=== PATIENT | female | born 1935 | race Caucasian/White ===

== ENCOUNTER → 2019-03-15 13:26 | Outpatient (CLI) | payer MEDICARE, SELFPAY ==
--- NOTE | 2019-03-15 13:31 | ECHOD_ITS ---
Reason For Study: MURMUR Procedure This was a 2D Doppler, Color Flow transthoracic echocardiogram. The study was technically difficult. Exam performed in department. Left Ventricle Normal LV size. Left ventricular systolic function is normal. The estimated ejection fraction is 65 %. Diastolic function is indeterminate. No regional wall motion abnormalities noted. Right Ventricle Normal RV size. Normal systolic function. Atria The left atrium is mildly enlarged. Normal right atrium. No doppler evidence for ASD. Mitral Valve There is mild mitral annular calcification. Extension of the mitral annular calcification onto the posterior mitral valve leaflet. Trivial mitral valve insufficiency. Tricuspid Valve Normal tricuspid valve. Mild tricuspid valve insufficiency. Right ventricular systolic pressure estimated to be 35 mmHg. Aortic Valve Trisinus/trileaflet aortic valve. Mild focal aortic valve calcification. Trivial aortic valve insufficiency. Pulmonic Valve The pulmonic valve is not well visualized. Great Vessels Normal sized aortic root. Calcified aortic root. Pericardium/Pleural No pericardial effusion. MMode/2D Measurements & Calculations LVIDd: 4.3 cm IVSd: 0.93 cm Ao root diam: 3.0 cm LVIDs: 3.0 cm LVPWd: 1.1 cm RVDd: 3.5 cm FS: 31.6 % LAV(MOD-bp): 69.1 ml LA A4 area: 19.6 cm2 LA dimension(2D): 3.3 cm LAV(MOD-bp) Indexed: 39.3 ml/m2 LAV(MOD-sp2): 62.6 ml LAV(MOD-sp4): 62.0 ml RA A4 area: 19.3 cm2 Time Measurements MV dec time: 0.19 sec Doppler Measurements & Calculations MV E max rafael: 76.0 cm/sec Lat Peak E' Rafael: 11.2 cm/sec Med Peak E' Rafael: 7.2 cm/sec MV A max rafael: 88.1 cm/sec E/E' lat: 6.8 E/E' med: 10.5 MV E/A: 0.86 Ao V2 max: 156.0 cm/sec AI max rafael: 398.9 cm/sec LV V1 max: 103.5 cm/sec Ao max P.7 mmHg AI max P.7 mmHg LV V1 max P.3 mmHg AI dec slope: 298.0 cm/sec2 AI P1/2t: 392.2 msec PA V2 max: 141.3 cm/sec TR max rafael: 280.7 cm/sec TR max P.5 mmHg Interpretation Summary The study was technically difficult. Left ventricular systolic function is normal. The estimated ejection fraction is 65 %. The left atrium is mildly enlarged. There is mild mitral annular calcification. Extension of the mitral annular calcification onto the posterior mitral valve leaflet. Trivial mitral valve insufficiency. Mild tricuspid valve insufficiency. Mild focal aortic valve calcification. Trivial aortic valve insufficiency. Calcified aortic root. Right ventricular systolic pressure estimated to be 35 mmHg. Diastolic function is indeterminate. Ordering Physician: Uriel Esquivel Referring Physician: Uriel Esquivel Performed By: Nesha Arnett RDCS, RVT
== END ==
PROVIDERS: Referring Provider Family Medicine; Visit Provider Family Medicine
DX: R01.1 Cardiac murmur, unspecified (principal)
CPT/HCPCS: 93306

== ENCOUNTER → 2023-09-25 | Outpatient (CLI) | payer MEDICARE, SELFPAY ==
[2023-09-25 15:51] LABS: Absolute Lymphocyte Count 1.55 X10^3/uL (0.83-4.51); Absolute Neutrophil Count 5.7 X10^3/uL (2.0-7.7); Basophil# 0.07 X10^3/uL; Basophil% 0.9 % (0-1); Eosinophil# 0.08 X10^3/uL; Hematocrit 43.5 % (37-47); Hemoglobin 13.7 g/dL (12.0-15.0); Lymphocyte # 1.55 X10^3/ul (0.83-4.51); Lymphocyte % 19.4 % (19-41); Mean Corp Hgb Conc 31.5 g/dL (32-36); Mean Corpuscular Hgb 29.8 pg (27.0-32.0); Mean Corpuscular Volume 94.6 fL (81-99); Mean Platelet Vol. 11.6 fl (6.2-12.0); Monocyte# 0.57 X10^3/uL; Monocyte% 7.1 % (0-10); NRBC Flagged by Analyzer 0 % (0-5); Neutrophil # 5.69 X10^3/uL (2.7-7.7); Neutrophil % 71.2 % (47-70); Platelet Count 165 K/mm3 (150-450); RBC Distribution Width CV 13.9 % (11.6-14.6); RBC Distribution Width SD 48.6 fl (35.1-43.9)
[2023-09-25 16:38] LABS: Vitamin D,25 Hydroxy 31.5 ng/mL
[2023-09-25 16:54] LABS: ALB/GLOB Ratio 1.1 RATIO (0.9-2.4); AST(SGOT) 27 U/L (15-37); Alanine Aminotransfer ALT/SGPT 20 U/L (13-56); Albumin, Serum 3.6 g/dL (3.2-5.0); Alkaline Phosphatase 75 U/L (45-117); Anion Gap 7 (5-15); BUN 24 mg/dL (7-18); BUN/Creat Ratio 19.8 RATIO (10-20); Calcium,Total 9.2 mg/dL (8.5-10.1); Chloride 106 mmol/L (98-107); Cholesterol 182 mg/dL (200); Creatinine, Serum 1.21 mg/dL (0.55-1.02); EST Glomerular Filtration Rate 45 mL/min (>60); Est Glom Filt Rate - Afr Amer 54 mL/min (>60); Globulin 3.4 g/dL (2.2-4.2); Glucose 98 mg/dL (74-106); High Density Lipoprotein 64 mg/dL; Potassium 3.6 mmol/L (3.5-5.1); Sodium Level 140 mmol/L (136-145); Triglycerides 152 mg/dL; Very Low Density Lipoprotein 30 mg/dL (5-40)
== END | disposition home or self-care (01) ==
PROVIDERS: PCP Nurse Practitioner Family; Visit Provider Nurse Practitioner Family
DX: I10 Essential (primary) hypertension (principal); E78.5 Hyperlipidemia, unspecified; E55.9 Vitamin D deficiency, unspecified
CPT/HCPCS: 36415; 80053; 80061; 82306; 85025

== ENCOUNTER 2024-02-01 15:03 | Emergency (ER) | payer MEDICARE, SELFPAY ==
[2024-02-01] VITALS (8 sets, daily range): BP systolic 131–151; BP diastolic 76–83; PULSE 79–98; RESP 16–21; TEMP 36.2–36.6; O2SAT 93–98; BMI 26.6
--- NOTE | 2024-02-01 15:18 | EKG12_ITS ---
Test Reason : CHEST PAIN Blood Pressure : / mmHG Vent. Rate : 088 BPM Atrial Rate : 088 BPM P-R Int : 210 ms QRS Dur : 086 ms QT Int : 356 ms P-R-T Axes : 029 -16 043 degrees QTc Int : 430 ms Sinus rhythm with 1st degree A-V block Otherwise normal ECG Confirmed by ABHI SHETH, EMIR ([id number]), society editor NIKKIE BAUGH ([id number]) on 02/02/2024 8:28:05 AM Referred By: Confirmed By:EMIR MOE MD
--- NOTE | 2024-02-01 15:31 | EDS_ITS ---
HPI <LAVONNE Chan - Last Filed: 02/01/24 21:31> History of Present Illness Chief Complaint: Chest Pain Narrative Narrative: Patient presenting today due to substernal dull aching chest pain that radiates to the left side of her chest and back that started around 8:30 AM this morning. She reports that the pain is constant. She reports that the pain in her chest has subsided, she still has a slight pain in her mid back. Pain does not worsen with exertion. She denies feeling short of breath, any fevers, chills, recent illness, or cough. She denies any cardiac history. She reports a PMH of hypertension and COPD. PE Risk Factors: Negative for Recent Travel/Surgery, Recent Immobilization or Prior DVT or PE PFSH <LAVONNE Chan - Last Filed: 02/01/24 21:31> PFSH Medical History Anxiety and depression Chronic pain COPD (chronic obstructive pulmonary disease) GERD (gastroesophageal reflux disease) High cholesterol HTN (hypertension) Osteoporosis Home Medications albuterol sulfate 90 mcg/actuation aerosol inhaler 2 puff inhalation Q8H PRN shortness of breath or wheezing 02/01/24 [History Last Taken Unknown] amlodipine 5 mg tablet 5 mg PO DAILY 02/01/24 [History Last Taken 02/01/24] atenolol 25 mg tablet 25 mg PO DAILY 02/01/24 [History Last Taken 02/01/24] celecoxib 200 mg capsule 200 mg PO DAILY 02/01/24 [History Last Taken 02/01/24] morphine 10 mg capsule,extended release pellets 20 mg PO DAILY 02/01/24 [History Last Taken 02/01/24] omeprazole 40 mg capsule,delayed release 40 mg PO DAILY 02/01/24 [History Last Taken 02/01/24] raloxifene 60 mg tablet 60 mg PO DAILY 02/01/24 [History Last Taken 02/01/24] sertraline 100 mg tablet 150 mg PO DAILY 02/01/24 [History Last Taken Unknown] simvastatin 20 mg tablet 20 mg PO QHS 02/01/24 [History Last Taken 01/31/24] tiotropium bromide 2.5 mcg/actuation mist for inhalation (Spiriva Respimat) 2 puff inhalation DAILY 02/01/24 [History Last Taken 02/01/24] triamterene 37.5 mg-hydrochlorothiazide 25 mg tablet 1 tab PO DAILY 02/01/24 [History Last Taken 02/01/24] Allergy/AdvReac Type Severity Reaction Status Date / Time No Known Allergies Allergy Verified 02/01/24 15:19 Surgical History H/O knee surgery H/O: hysterectomy Social History Smoking Status: Former smoker ROS <LAVONNE Chan - Last Filed: 02/01/24 21:31> ROS ED Constitutional Constitutional ED: Denies chills or fever(s) Cardiovascular Cardiovascular: Reports chest pain; Denies palpitations Respiratory/Chest Respiratory/Chest: Denies cough or dyspnea Gastrointestinal Gastrointestinal: Denies abdominal pain, nausea or vomiting Musculoskeletal Musculoskeletal: Reports back pain Integumentary Denies rash Neurologic Neurologic: Denies paresthesias or weakness EXAM <LAVONNE Chan - Last Filed: 02/01/24 21:31> Physical Exam Const Vital Signs: 02/01/24 15:04 02/01/24 15:04 02/01/24 16:04 Temperature 97.2 F L 97.2 F L Temperature Source Temporal Temporal Pulse Rate 82 92 Respiratory Rate 16 18 Respiratory Effort Normal Non-Labored Respiratory Pattern Normal Blood Pressure 148/82 H 150/81 H Blood Pressure Mean 104 104 Pulse Ox 95 93 Oxygen Delivery Method Room Air Room Air 02/01/24 17:00 02/01/24 18:00 02/01/24 19:00 Temperature 97.4 F L 97.2 F L Temperature Source Temporal Temporal Pulse Rate 89 85 88 Respiratory Rate 16 18 21 H Respiratory Effort Respiratory Pattern Blood Pressure 139/76 H 131/77 H 136/81 H Blood Pressure Mean 97 95 99 Pulse Ox 95 96 98 Oxygen Delivery Method Room Air Room Air Room Air 02/01/24 20:00 02/01/24 21:19 02/01/24 21:00 Temperature 98 F Temperature Source Pulse Rate 79 80 98 Respiratory Rate 16 16 19 H Respiratory Effort Respiratory Pattern Blood Pressure 151/78 H 147/83 H 135/82 H Blood Pressure Mean 102 104 99 Pulse Ox 94 98 93 Oxygen Delivery Method Room Air Positive well nourished, well developed and no apparent distress General Appearance ED: well developed HEENT Reports normocephalic and head/scalp atraumatic Mouth ED: Yes moist mucous membranes normal Eyes PERRL and EOMs intact bilaterally Neck full ROM and supple Chest Wall inspection of chest normal Resp normal respiratory effort and clear to auscultation bilaterally Cardio regular rate and regular rhythm GI soft to palpation, non-tender, non-distended and no masses Back/Spine normal ROM and normal to inspection Extremity normal to inspection and full ROM Neuro oriented x3, CN's II-XII intact bilaterally, moves all extremities, no focal motor deficits and no sensory deficits noted Sensorium / Orientation: awake and alert Psych mental status grossly normal and thought process normal Skin no rashes or lesions noted and no wounds <Dr. Sivakumar Neal DO - Last Filed: 02/01/24 23:00> Physical Exam Const Vital Signs: 02/01/24 15:04 02/01/24 15:04 02/01/24 16:04 Temperature 97.2 F L 97.2 F L Temperature Source Temporal Temporal Pulse Rate 82 92 Respiratory Rate 16 18 Respiratory Effort Normal Non-Labored Respiratory Pattern Normal Blood Pressure 148/82 H 150/81 H Blood Pressure Mean 104 104 Pulse Ox 95 93 Oxygen Delivery Method Room Air Room Air 02/01/24 17:00 02/01/24 18:00 02/01/24 19:00 Temperature 97.4 F L 97.2 F L Temperature Source Temporal Temporal Pulse Rate 89 85 88 Respiratory Rate 16 18 21 H Respiratory Effort Respiratory Pattern Blood Pressure 139/76 H 131/77 H 136/81 H Blood Pressure Mean 97 95 99 Pulse Ox 95 96 98 Oxygen Delivery Method Room Air Room Air Room Air 02/01/24 20:00 02/01/24 21:19 02/01/24 21:00 Temperature 98 F Temperature Source Pulse Rate 79 80 98 Respiratory Rate 16 16 19 H Respiratory Effort Respiratory Pattern Blood Pressure 151/78 H 147/83 H 135/82 H Blood Pressure Mean 102 104 99 Pulse Ox 94 98 93 Oxygen Delivery Method Room Air MDM <LAVONNE Chan - Last Filed: 02/01/24 21:31> [facility] MDM Narrative Medical decision making narrative: Patient presenting today due to substernal chest pain that radiates to her back and left side of her chest started this morning around 8:30 AM. She is well- appearing and in no acute distress. She reports that her chest pain has subsided but she does still feel a slight pain in her back. No history of CAD. Cardiac labs will be obtained as well as a chest x-ray to rule out cardiopulmonary abnormality. Chest x-ray is negative for any acute findings, nonsignificant delta troponin. Labs overall are unremarkable. She was given a GI cocktail and reports improvement of her symptoms. She is requesting to go home. I did recommend that she follow-up with her PCP this week and schedule cardiac testing such as a stress test and echocardiogram given it has been a while since she has had these done. Return instructions were given, she was discharged home in stable condition and is comfortable with plan. Lab Data Attestation: I reviewed the patient's lab results. Labs: Laboratory Results - last 24 hr 02/01/24 02/01/24 17:56 20:01 WBC 10.6 RBC 4.50 Hgb 13.4 Hct 42.5 MCV 94.4 MCH 29.8 MCHC 31.5 L RDW Std Deviation 48.5 H RDW Coeff of Lucio 14.0 Plt Count 143 L MPV 11.1 Immature Gran % (Auto) 0.300 Neut % (Auto) 79.0 H Lymph % (Auto) 12.8 L [place] % (Auto) 7.1 Eos % (Auto) 0.4 Baso % (Auto) 0.4 Absolute Neuts (auto) 8.3 H Absolute Lymphs (auto) 1.35 Nucleated RBC % 0 Sodium 141 Potassium 3.8 Chloride 109 H Carbon Dioxide 28.0 Anion Gap 4 L BUN 24 H Creatinine 0.96 Estim Creat Clear Calc 39.72 Est GFR (MDRD) Af Amer 71 Est GFR (MDRD) Non-Af 59 L BUN/Creatinine Ratio 25.1 H Glucose 103 Calcium 9.1 Troponin I High Sens 9 7 Radiography X-Ray: Read by ED Physician and Read by Radiologist Diagnostic Testing: Clinical Impression(s) from Imaging Studies Chest X-Ray 02/01/24 18:22 IMPRESSION: No active disease. Electronically Signed: Oz Olivo MD at 19:46 EDT , EKG Initial EKG: Comments: 88 bpm, sinus rhythm with first-degree AV block, no ST elevation, reviewed and interpreted by attending ED physician <Dr. Sivakumar Neal, DO - Last Filed: 02/01/24 23:00> [facility] Narrative Medical decision making narrative: Patient presenting today due to substernal chest pain that radiates to her back and left side of her chest started this morning around 8:30 AM. She is well- appearing and in no acute distress. She reports that her chest pain has subsided but she does still feel a slight pain in her back. No history of CAD. Cardiac labs will be obtained as well as a chest x-ray to rule out cardiopulmonary abnormality. Chest x-ray is negative for any acute findings, nonsignificant delta troponin. Labs overall are unremarkable. She was given a GI cocktail and reports improvement of her symptoms. She is requesting to go home. I did recommend that she follow-up with her PCP this week and schedule cardiac testing such as a stress test and echocardiogram given it has been a while since she has had these done. Return instructions were given, she was discharged home in stable condition and is comfortable with plan. This patient was seen with a PA/ENVIRONMENTAL STUDIES PROFESSOR Individually assessed they patient including history and physical. I have reviewed everything on the chart that is available and agree with the documentation provided by the PA/ENVIRONMENTAL STUDIES PROFESSOR including discussion abo ut the assessment, treatment plan, discussion, and return precautions. Patient presenting with chest pain that radiates to the back that has been present since about 830. No other symptoms although she does have a history of GERD in the past. Cardiac workup was ultimately negative. Offered the patient a GI cocktail which she states it had improved her symptoms. At this point since she has had pain all day I do not believe she needs a delta troponin but we did obtain 1 and it was normal at 7 and her initial troponin was 9. Chest x-ray my interpretation is no acute process. Radiologist interprets and agrees. EKG on my interpretation shows a sinus rhythm at 88 bpm without sign ischemic change or ectopy. At this point the patient will be discharged home and return precautions were discussed Lab Data Labs: Laboratory Results - last 24 hr 02/01/24 02/01/24 17:56 20:01 WBC 10.6 RBC 4.50 Hgb 13.4 Hct 42.5 MCV 94.4 MCH 29.8 MCHC 31.5 L RDW Std Deviation 48.5 H RDW Coeff of Lucio 14.0 Plt Count 143 L MPV 11.1 Immature Gran % (Auto) 0.300 Neut % (Auto) 79.0 H Lymph % (Auto) 12.8 L [place] % (Auto) 7.1 Eos % (Auto) 0.4 Baso % (Auto) 0.4 Absolute Neuts (auto) 8.3 H Absolute Lymphs (auto) 1.35 Nucleated RBC % 0 Sodium 141 Potassium 3.8 Chloride 109 H Carbon Dioxide 28.0 Anion Gap 4 L BUN 24 H Creatinine 0.96 Estim Creat Clear Calc 39.72 Est GFR (MDRD) Af Amer 71 Est GFR (MDRD) Non-Af 59 L BUN/Creatinine Ratio 25.1 H Glucose 103 Calcium 9.1 Troponin I High Sens 9 7 Radiography Diagnostic Testing: Clinical Impression(s) from Imaging Studies Chest X-Ray 02/01/24 18:22 IMPRESSION: No active disease. Electronically Signed: Oz Olivo MD at 19:46 EDT , Discharge Plan Triage Chief Complaint: Chest Pain ED Midlevel Provider: Ingris Vela ED Provider: Sivakumar Neal Dx/Rx/DC Orders Clinical Impression: Chest pain Instructions: ED Chest Pain, Uncertain Cause Prescriptions: No Action celecoxib 200 mg capsule 200 mg PO DAILY sertraline 100 mg tablet 150 mg PO DAILY atenolol 25 mg tablet 25 mg PO DAILY amlodipine 5 mg tablet 5 mg PO DAILY omeprazole 40 mg capsule,delayed release(DR/EC) 40 mg PO DAILY triamterene-hydrochlorothiazid 37.5-25 mg tablet 1 tab PO DAILY raloxifene 60 mg tablet 60 mg PO DAILY morphine 10 mg capsule,extend.release pellets 20 mg PO DAILY albuterol sulfate 90 mcg/actuation HFA aerosol inhaler 2 puff inhalation Q8H PRN (Reason: shortness of breath or wheezing) simvastatin 20 mg tablet 20 mg PO QHS Spiriva Respimat 2.5 mcg/actuation mist 2 puff inhalation DAILY Primary Care Provider: Sindhu Haney Referrals: Sindhu Haney, ENVIRONMENTAL STUDIES PROFESSOR-C [Primary Care Provider] - 3-5 Days Activity Restrictions/Additional Instructions: Please follow-up with your PCP and return for any worsening of your symptoms. Disposition Disposition: Home, Self Care Discharge Date/Time: 02/01/24 21:20
[2024-02-01 18:07] LABS: Absolute Lymphocyte Count 1.35 X10^3/uL (0.83-4.51); Absolute Neutrophil Count 8.3 X10^3/uL (2.0-7.7); Basophil# 0.04 X10^3/uL; Basophil% 0.4 % (0-1); Eosinophil# 0.04 X10^3/uL; Eosinophils% 0.4 % (0-5); Hematocrit 42.5 % (37-47); Hemoglobin 13.4 g/dL (12.0-15.0); Lymphocyte # 1.35 X10^3/ul (0.83-4.51); Lymphocyte % 12.8 % (19-41); Mean Corp Hgb Conc 31.5 g/dL (32-36); Mean Corpuscular Hgb 29.8 pg (27.0-32.0); Mean Corpuscular Volume 94.4 fL (81-99); Mean Platelet Vol. 11.1 fl (6.2-12.0); Monocyte# 0.75 X10^3/uL; Monocyte% 7.1 % (0-10); NRBC Flagged by Analyzer 0 % (0-5); Neutrophil # 8.34 X10^3/uL (2.7-7.7); Platelet Count 143 K/mm3 (150-450); RBC Distribution Width SD 48.5 fl (35.1-43.9); White Blood Count 10.6 K/mm3 (4.4-11.0)
--- NOTE | 2024-02-01 18:22 | RAD_ITS ---
STUDY: X-RAY CHEST REASON FOR EXAM: Female, 88 years old. chest pain TECHNIQUE: PA and lateral views of the chest. COMPARISON: None. FINDINGS: The lungs are clear and expanded. There is no demonstrated pleural abnormality. Normal size heart. Normal mediastinum and lay. Normal visualized pulmonary arteries. There is atherosclerotic calcification of the aortic arch with tortuosity. Normal visualized thoracic spine. Normal visualized ribs, clavicles, and shoulders. There is no demonstrated abnormality of the visualized soft tissue structures of the upper abdomen. RAD/Chest PA and Lateral IMPRESSION: No active disease. Electronically Signed: Oz Olivo MD at 19:46 EDT ,
[2024-02-01 18:24] LABS: Anion Gap 4 (5-15); BUN 24 mg/dL (7-18); BUN/Creat Ratio 25.1 RATIO (10-20); Calcium,Total 9.1 mg/dL (8.5-10.1); Chloride 109 mmol/L (98-107); Creatinine, Serum 0.96 mg/dL (0.55-1.02); EST Glomerular Filtration Rate 59 mL/min (>60); Est Glom Filt Rate - Afr Amer 71 mL/min (>60); Estimated Creatinine Clearance 39.72 ml/min; Glucose 103 mg/dL (74-106); Potassium 3.8 mmol/L (3.5-5.1); Sodium Level 141 mmol/L (136-145); Troponin-I HS (w/2H Reflex) 9 pg/mL (3.0-54.0)
[2024-02-01 20:01] LABS: Reflex Troponin-HS? (from REC) Y
[2024-02-01] MEDS: Mag Hydrox/Al Hydrox/Simeth 30 ML UDC PO (20:13)
[2024-02-01 20:24] LABS: Troponin-I HS 7 pg/mL (3.0-54.0)
== END 2024-02-01 21:20 | disposition home or self-care (01) ==
PROVIDERS: Physician Assistant; Emergency Provider Student in an Organized Health Care Education/Training Program; PCP Nurse Practitioner Family; Visit Provider Student in an Organized Health Care Education/Training Program
DX: R07.2 Precordial pain (principal); J44.9 Chronic obstructive pulmonary disease, unspecified; M54.9 Dorsalgia, unspecified; I10 Essential (primary) hypertension; E78.00 Pure hypercholesterolemia, unspecified; Z87.891 Personal history of nicotine dependence; Z79.899 Other long term (current) drug therapy
CPT/HCPCS: 36415; 71046; 80048; 84484; 85025; 93005; 99284; A4216

== ENCOUNTER → 2024-09-30 | Outpatient (CLI) | payer MEDICARE, SELFPAY ==
[2024-09-30 12:00] LABS: Absolute Lymphocyte Count 1.69 X10^3/uL (0.83-4.51); Absolute Neutrophil Count 4.7 X10^3/uL (2.0-7.7); Basophil# 0.07 X10^3/uL; Eosinophil# 0.09 X10^3/uL; Eosinophils% 1.3 % (0-5); Hematocrit 42.4 % (37-47); Hemoglobin 13.1 g/dL (12.0-15.0); Lymphocyte # 1.69 X10^3/ul (0.83-4.51); Lymphocyte % 23.9 % (19-41); Mean Corp Hgb Conc 30.9 g/dL (32-36); Mean Corpuscular Hgb 29.7 pg (27.0-32.0); Mean Corpuscular Volume 96.1 fL (81-99); Mean Platelet Vol. 11.4 fl (6.2-12.0); Monocyte# 0.51 X10^3/uL; Monocyte% 7.2 % (0-10); NRBC Flagged by Analyzer 0 % (0-5); Neutrophil # 4.68 X10^3/uL (2.7-7.7); Neutrophil % 66.3 % (47-70); Platelet Count 157 K/mm3 (150-450); RBC Distribution Width CV 13.9 % (11.6-14.6); RBC Distribution Width SD 49.4 fl (35.1-43.9); Red Blood Count 4.41 M/mm3 (4.2-5.4); White Blood Count 7.1 K/mm3 (4.4-11.0)
[2024-09-30 12:29] LABS: ALB/GLOB Ratio 1.2 RATIO (0.9-2.4); AST(SGOT) 16 U/L (15-37); Alanine Aminotransfer ALT/SGPT 14 U/L (13-56); Albumin, Serum 3.7 g/dL (3.2-5.0); Alkaline Phosphatase 61 U/L (45-117); Anion Gap 6 (5-15); BUN 41 mg/dL (7-18); BUN/Creat Ratio 40.6 RATIO (10-20); Calcium,Total 9.6 mg/dL (8.5-10.1); Chloride 108 mmol/L (98-107); Cholesterol 174 mg/dL (200); Creatinine, Serum 1.01 mg/dL (0.55-1.02); EST Glomerular Filtration Rate 55 mL/min (>60); Est Glom Filt Rate - Afr Amer 66 mL/min (>60); Globulin 3.2 g/dL (2.2-4.2); Glucose 104 mg/dL (74-106); High Density Lipoprotein 79 mg/dL; Potassium 3.7 mmol/L (3.5-5.1); Protein, Total 6.9 g/dL (6.4-8.2); Sodium Level 143 mmol/L (136-145); Triglycerides 89 mg/dL; Very Low Density Lipoprotein 18 mg/dL (5-40)
[2024-10-03 15:32] LABS: Vitamin D,25 Hydroxy 48.3 ng/mL
== END | disposition home or self-care (01) ==
PROVIDERS: PCP Nurse Practitioner Family; Referring Provider Nurse Practitioner Family; Visit Provider Nurse Practitioner Family
DX: I10 Essential (primary) hypertension (principal); E78.5 Hyperlipidemia, unspecified; E55.9 Vitamin D deficiency, unspecified
CPT/HCPCS: 36415; 80053; 80061; 82306; 85025

== ENCOUNTER → 2025-10-06 | Outpatient (CLI) | payer MEDICARE, SELFPAY ==
--- OUTSIDE RECORDS SUMMARY | 2025-10-06 10:41 | XMS RPT_ITS | CCD ---
Author Organization [facility] Care Team Providers Care Boarding House Cook Name Role Phone Kari Goldman Unavailable Unavailable Kari Goldman Unavailable Unavailable Kari Goldman Unavailable Unavailable Kari Goldman Unavailable Unavailable Rings, Tucker Unavailable Unavailable Rings, Tucker Unavailable Unavailable Ariadna Jimenez Unavailable Unavailable Ysabel Crockett Unavailable Unavailable LANETTE LAITF Attending Unavailable LANETTE LATIF Referring Unavailable KARI FLANAGAN Primary Care Unavailable Sivakumar Neal Attending Unavailable Sindhu Haney Primary Care Unavailable Sindhu Haney Attending Unavailable Sindhu Haney Referring Unavailable Sindhu Haney Primary Care Unavailable Medications Current Medications Medication Drug Class(es) Dates Sig (Normalized) Sig (Original) [id number] 200 actuat albuterol 0.09 mg/actuat metered dose inhaler (1 source) beta2-Adrenergic Agonist Start: 02-01-2024 take 1 puff(s) by inhalation every eight hours Albuterol Sulfate Active 2 PUFF INHALATION Q8H February 01, 2024 12:00am amLODIPine 5 mg oral tablet (1 source) Dihydropyridine Calcium Channel Flaquita Start: 02-01-2024 take 5 mg by mouth once daily Amlodipine Active 5 MG PO DAILY February 01, 2024 12:00am atenolol 25 mg oral tablet (1 source) beta-Adrenergic Flaquita Start: 02-01-2024 take 25 mg by mouth once daily Atenolol Active 25 MG PO DAILY February 01, 2024 12:00am celecoxib 200 mg oral capsule (1 source) Nonsteroidal Anti-inflammatory Drug Start: 02-01-2024 take 200 mg by mouth once daily Celecoxib Active 200 MG PO DAILY February 01, 2024 12:00am hydroCHLOROthiazide 25 mg / triamterene 37.5 mg oral tablet (1 source) Potassium-sparing Diuretic, Thiazide Diuretic Start: 02-01-2024 take 1 tablet by mouth once daily Triamterene-Hyd rochlorothiazid Active 1 TABLET PO DAILY February 01, 2024 12:00am morphine sulfate 10 mg extended release oral capsule (1 source) Opioid Agonist Start: 02-01-2024 take 20 mg by mouth once daily Morphine Active 20 MG PO DAILY February 01, 2024 12:00am omeprazole 40 mg delayed release oral capsule (1 source) Proton Pump Inhibitor Start: 02-01-2024 take 40 mg by mouth once daily Omeprazole Active 40 MG PO DAILY February 01, 2024 12:00am raloxifene hydrochloride 60 mg oral tablet (1 source) Estrogen Agonist/Antagonist Start: 02-01-2024 take 60 mg by mouth once daily Raloxifene Active 60 MG PO DAILY February 01, 2024 12:00am sertraline 100 mg oral tablet (1 source) Serotonin Reuptake Inhibitor Start: 02-01-2024 take 150 mg by mouth once daily Sertraline Active 150 MG PO DAILY February 01, 2024 12:00am simvastatin 20 mg oral tablet (1 source) HMG-CoA Reductase Inhibitor Start: 02-01-2024 take 20 mg by mouth at bedtime Simvastatin Active 20 MG PO AT BEDTIME February 01, 2024 12:00am 60 actuat tiotropium 0.0025 mg/actuat inhalation spray (1 source) Anticholinergic Start: 02-01-2024 take 1 puff(s) by inhalation once daily Tiotropium [place] (Tiotropium [place] 2.5 Mcg/Actuation Mist For Inhalation) 2.5 mcg/actuation mist Active 2 PUFF INHALATION DAILY February 01, 2024 12:00am Completed/Discontinued Medications Medication Drug Class(es) Dates Sig (Normalized) Sig (Original) 120 actuat albuterol 0.1 mg/actuat / ipratropium bromide 0.02 mg/actuat inhalation spray (1 source) Anticholinergic, beta2-Adrenergic Agonist Start: 02-01-2024 End: 02-01-2024 take 1 puff(s) by inhalation four times daily Ipratropium-Albuter ol [Ipratropium 20 Mcg-Albuterol 100 Mcg/Actuation Mist For Inhalation] (Ipratropium 20 Mcg-Albuterol 100 Mcg/Actuation Mist For ) 20-100 mcg/actuation mist Discontinued 1 PUFF INHALATION 4 TIMES DAILY February 01, 2024 12:00am February 01, 2024 6:08pm Problems Active Problems Problem Classification Problem Date Documented Da te Episodic/Chronic Essential hypertension (1 source) Essential (primary) hypertension; Translations: [Essential (primary) hypertension] Onset: 11-09-2024 Chronic Other nervous system disorders (6 sources) Abnormal gait; Translations: [Abnormal gait] Episodic Other non-traumatic joint disorders (6 sources) Hip pain; Translations: [Pain of left hip joint] Episodic Other non-traumatic joint disorders (2 sources) Pain in left knee; Translations: [Pain in left knee] Onset: 11-10-2022 Episodic Paralysis (6 sources) Paraparesis; Translations: [Weakness of both lower extremities] Chronic Past or Other Problems Problem Classification Problem Date Documented Da te Episodic/Chronic Nonspecific chest pain (2 sources) Chest pain; Translations: [Chest pain, unspecified] Onset: 02-06-2024 02-01-2024 Episodic NEGATED: Highlighted row has not occurred!Residual codes; unclassified (20 sources) Disease Episodic Results Test Name Value Interpretation Reference Range Facility Vitamin D,25 Hydroxyon 10-03 Vitamin D 25-OH 48.3 ng/mL Normal [facility] Comment on above: Result Comment: Caroline min D 25(OH) Status Range Deficiency <20 ng/mL (50nmol/L) Insufficiency 20 - 30 ng/mL (50 - 75 nmol/L) Sufficiency 30 - 100 ng/mL (75 - 250 nmol/L) Toxicity >100 ng/mL (>250 nmol/L) Performed By: #### L 506.1000, L500.4050, L500.4100, L100.0100 #### [facility] [address] [place], [address] CBC W/Diff, Automatedon 09-18 Absolute Lymph 1.69 X10 3/uL Normal 0.83-4.51 [facility] Comment on above: Performed By: #### L 506.1000, L500.4050, L500.4100, L100.0100 #### [facility] [address] [place], [address] Absolute Neut 4.7 X10 3/uL Normal 2.0-7.7 [facility] Comment on above: Performed By: #### L 506.1000, L500.4050, L500.4100, L100.0100 #### [facility] [address] [place], [address] Basophils/100 WBC (Bld) 1.0 % Normal 0-1 [facility] Comment on above: Performed By: #### L 506.1000, L500.4050, L500.4100, L100.0100 #### [facility] [address] [place], [address] Eosinophils/100 WBC (Bld) 1.3 % Normal 0-5 [facility] Comment on above: Performed By: #### L 506.1000, L500.4050, L500.4100, L100.0100 #### [facility] [address] [place], [address] Erythrocyte distribution width (RBC) [Ratio] 13.9 % Normal 11.6-14.6 [facility] Comment on above: Performed By: #### L 506.1000, L500.4050, L500.4100, L100.0100 #### [facility] [address] [place], [address] Hematocrit (Bld) [Volume fraction] 42.4 % Normal 37-47 [facility] Comment on above: Performed By: #### L 506.1000, L500.4050, L500.4100, L100.0100 #### [facility] [address] [place], [address] Hemoglobin (Bld) [Mass/Vol] 13.1 g/dL Normal 12.0-15.0 [facility] Comment on above: Performed By: #### L 506.1000, L500.4050, L500.4100, L100.0100 #### [facility] [address] [place], [address] IG% 0.300 Normal 0.0-0.9 [facility] Comment on above: Result Comment: IG% - Immature Granulocytes (promyelocytes, myelocytes and metamyelocytes) > 1% indicates that a LEFT SHIFT is Present. Performed By: #### L 506.1000, L500.4050, L500.4100, L100.0100 #### [facility] [address] [place], [address] Lymphocytes/100 WBC (Bld) 23.9 % Normal 19-41 [facility] Comment on above: Performed By: #### L 506.1000, L500.4050, L500.4100, L100.0100 #### [facility] [address] [place], [address] MCH (RBC) [Entitic mass] 29.7 pg Normal 27.0-32.0 [facility] Comment on above: Performed By: #### L 506.1000, L500.4050, L500.4100, L100.0100 #### [facility] [address] [place], [address] MCHC (RBC) [Mass/Vol] 30.9 g/dL Low 32-36 [facility] Comment on above: Performed By: #### L 506.1000, L500.4050, L500.4100, L100.0100 #### [facility] [address] [place], [address] MCV (RBC) [Entitic vol] 96.1 fL Normal 81-99 [facility] Comment on above: Performed By: #### L 506.1000, L500.4050, L500.4100, L100.0100 #### [facility] [address] [place], [address] Monocytes/100 WBC (Bld) 7.2 % Normal 0-10 [facility] Comment on above: Performed By: #### L 506.1000, L500.4050, L500.4100, L100.0100 #### [facility] [address] [place], [address] Neutrophils/100 WBC (Bld) 66.3 % Normal 47-70 [facility] Comment on above: Performed By: #### L 506.1000, L500.4050, L500.4100, L100.0100 #### [facility] [address] [place], [address] Nucleated RBC (Bld) [#/Vol] 0 10*3/uL Normal 0-5 [facility] Comment on above: Performed By: #### L 506.1000, L500.4050, L500.4100, L100.0100 #### [facility] [address] [place], [address] Platelet mean volume (Bld) [Entitic vol] 11.4 fL Normal 6.2-12.0 [facility] Comment on above: Performed By: #### L 506.1000, L500.4050, L500.4100, L100.0100 #### [facility] [address] [place], [address] Platelets (Bld) [#/Vol] 157 10*3/uL Normal 150-450 [facility] Comment on above: Performed By: #### L 506.1000, L500.4050, L500.4100, L100.0100 #### [facility] [address] [place], [address] RBC (Bld) [#/Vol] 4.41 10*6/uL Normal 4.2-5.4 [facility] Comment on above: Performed By: #### L 506.1000, L500.4050, L500.4100, L100.0100 #### [facility] [address] [place], [address] RDW SD 49.4 fl High 35.1-43.9 [facility] Comment on above: Performed By: #### L 506.1000, L500.4050, L500.4100, L100.0100 #### [facility] [address] [place], [address] WBC (Bld) [#/Vol] 7.1 10*3/uL Normal 4.4-11.0 [facility] Comment on above: Performed By: #### L 506.1000, L500.4050, L500.4100, L100.0100 #### [facility] [address] [place], [address] Comprehensive Metabolic Prof ilon 09-30-2024 Albumin [Mass/Vol] 3.7 g/dL Normal 3.2-5.0 [facility] Comment on above: Performed By: #### L 506.1000, L500.4050, L500.4100, L100.0100 #### [facility] [address] [place], [address] Albumin/Globulin [Mass ratio] 1.2 {ratio} Normal 0.9-2.4 [facility] Comment on above: Performed By: #### L 506.1000, L500.4050, L500.4100, L100.0100 #### [facility] [address] [place], [address] ALK P 61 U/L Normal 45-117 [facility] Comment on above: Performed By: #### L 506.1000, L500.4050, L500.4100, L100.0100 #### [facility] [address] [place], [address] ALT [Catalytic activity/Vol] 14 U/L Normal 13-56 [facility] Comment on above: Performed By: #### L 506.1000, L500.4050, L500.4100, L100.0100 #### [facility] [address] [place], [address] AST [Catalytic activity/Vol] 16 U/L Normal 15-37 [facility] Comment on above: Performed By: #### L 506.1000, L500.4050, L500.4100, L100.0100 #### [facility] [address] [place], [address] Bilirubin [Mass/Vol] 0.50 mg/dL Normal 0.20-1.00 [facility] Comment on above: Result Comment: For patients on eltrombopag therapy, use of [place] TBIL is not recommended. Performed By: #### L 506.1000, L500.4050, L500.4100, L100.0100 #### [facility] [address] [place], [address] BUN/CRE 40.6 RATIO High 10-20 [facility] Comment on above: Performed By: #### L 506.1000, L500.4050, L500.4100, L100.0100 #### [facility] [address] [place], [address] CA,Total 9.6 mg/dL Normal 8.5-10.1 [facility] Comment on above: Performed By: #### L 506.1000, L500.4050, L500.4100, L100.0100 #### [facility] [address] [place], [address] Chloride [Moles/Vol] 108 mmol/L High 98-107 [facility] Comment on above: Performed By: #### L 506.1000, L500.4050, L500.4100, L100.0100 #### [facility] [address] [place], [address] CO2 [Moles/Vol] 29.0 mmol/L Normal 21.0-32.0 [facility] Comment on above: Performed By: #### L 506.1000, L500.4050, L500.4100, L100.0100 #### [facility] [address] [place], [address] Creatinine [Mass/Vol] 1.01 mg/dL Normal 0.55-1.02 [facility] Comment on above: Result Comment: The validity of the calculated GFR GFRAA in patients over 70 years has not been determined. Clinical correlation is essential. Performed By: #### L 506.1000, L500.4050, L500.4100, L100.0100 #### [facility] [address] [place], [address] EST GFR - AA 66 mL/min Normal >60 [facility] Comment on above: Result Comment: Afri can Latvian GFR Calc Performed By: #### L 506.1000, L500.4050, L500.4100, L100.0100 #### [facility] [address] [place], [address] GAP 6 Normal 5-15 [facility] Comment on above: Performed By: #### L 506.1000, L500.4050, L500.4100, L100.0100 #### [facility] [address] [place], [address] GFR/1.73 sq M.predicted among non-blacks MDRD (S/P/Bld) [Vol rate/Area] 55 mL/min/{1.73_m2} Low >60 [facility] Comment on above: Result Comment: Non- GFR Calc Performed By: #### L 506.1000, L500.4050, L500.4100, L100.0100 #### [facility] [address] [place], [address] Globulin (S) [Mass/Vol] 3.2 g/dL Normal 2.2-4.2 [facility] Comment on above: Performed By: #### L 506.1000, L500.4050, L500.4100, L100.0100 #### [facility] [address] [place], [address] Glucose [Mass/Vol] 104 mg/dL Normal 74-106 [facility] Comment on above: Result Comment: Fast ing Glucose result from 100 to 125 mg/dL suggests IMPAIRED HOMEOSTASIS per A.D.A. criteria. Performed By: #### L 506.1000, L500.4050, L500.4100, L100.0100 #### [facility] [address] [place], [address] Potassium [Moles/Vol] 3.7 mmol/L Normal 3.5-5.1 [facility] Comment on above: Performed By: #### L 506.1000, L500.4050, L500.4100, L100.0100 #### [facility] [address] [place], [address] Sodium [Moles/Vol] 143 mmol/L Normal 136-145 [facility] Comment on above: Performed By: #### L 506.1000, L500.4050, L500.4100, L100.0100 #### [facility] [address] [place], [address] T PROT 6.9 g/dL Normal 6.4-8.2 [facility] Comment on above: Performed By: #### L 506.1000, L500.4050, L500.4100, L100.0100 #### [facility] [address] [place], [address] Urea nitrogen [Mass/Vol] 41 mg/dL High 7-18 [facility] Comment on above: Performed By: #### L 506.1000, L500.4050, L500.4100, L100.0100 #### [facility] [address] [place], [address] Lipid Profileon 09-30-2024 Cholesterol [Mass/Vol] 174 mg/dL Normal 200 [facility] Comment on above: Result Comment: <200 mg/dL Desirable 200-240 mg/dL Borderline >240 mg/dL High Risk Performed By: #### L 506.1000, L500.4050, L500.4100, L100.0100 #### [facility] [address] [place], [address] Cholesterol in HDL [Mass/Vol] 79 mg/dL Normal [facility] Comment on above: Result Comment: The drugs N-Acetylcysteine and Metamizole may falsely depress this assay. Reference Range HDL <40 mg/dL Low HDL Cholesterol HDL >or= 60 mg/dL High HDL Cholesterol Performed By: #### L 506.1000, L500.4050, L500.4100, L100.0100 #### [facility] [address] [place], [address] Cholesterol in LDL [Mass/Vol] 77 mg/dL Normal 0-130 [facility] Comment on above: Performed By: #### L 506.1000, L500.4050, L500.4100, L100.0100 #### [facility] [address] [place], [address] Cholesterol in VLDL [Mass/Vol] 18 mg/dL Normal 5-40 [facility] Comment on above: Performed By: #### L 506.1000, L500.4050, L500.4100, L100.0100 #### [facility] [address] [place], [address] Triglyceride [Mass/Vol] 89 mg/dL Normal [facility] Comment on above: Result Comment: The drugs N-Acetylcysteine and Metamizole may falsely depress this assay. Serum Triglycerides Reference Interval Normal <150 mg/dL Borderline high 150 - 199 mg/dL High 200 - 499 mg/dL Very High > or = 500 mg/dL Performed By: #### L 506.1000, L500.4050, L500.4100, L100.0100 #### [facility] [address] [place], [address] 12 Lead EKGon 02-01-2024 12 Lead EKG [facility] [address] [place] [address] 12 Lead EKG 02/01/24 1514 MR#: [id number] Acct: [id number] Name: DINESH FLYNN Rep #: [id number] : [id number] From: Manuel Haynes MD Attending Dr: Status: DEP ER Ordering Dr: Ingris Vela Date: 02/01/24 Location: ED Sex: F C Admitted: Test Reason : CHEST PAIN Blood Pressure : / mmHG Vent. Rate : 088 BPM Atrial Rate : 088 BPM P-R Int : 210 ms QRS Dur : 086 ms QT Int : 356 ms P-R-T Axes : 029 -16 043 degrees QTc Int : 430 ms Sinus rhythm with 1st degree A-V block Otherwise normal ECG Confirmed by MANUEL HAYNES MD ([id number]), news assignment editor NIKKIE BAUGH ([id number]) on 02/02/2024 8:28:05 AM Referred By: Confirmed By:MANUEL HAYNES MD 02/02/24 0828 Date Manuel Haynes MD CC: BALL ENDER-C Sindhu Haney; Dr. Sivakumar Neal, DO; LAVONNE Chan Signed Normal [facility] Absolute lymphocyte countOrd ered By: Ingris Vela on 02-01-2024 Lymphocytes Auto (Unsp spec) [#/Vol] 1.35 10*3/uL 0.83-4.51 [facility] Automated lymphocyte count a s percentage of total leukocytesOrdered By: Ingris Vela on 02-01-2024 Lymphocytes/100 WBC Auto (Unsp spec) 12.8 % 19-41 [facility] Basic Metabolic Profile (BMP )on 02-01-2024 BUN/CRE 25.1 RATIO High 10-20 [facility] Comment on above: Order Comment: 1 Y Performed By: #### L 100.0100, L500.2500, L501.5425 #### [facility] [address] [place], [address] CA,Total 9.1 mg/dL Normal 8.5-10.1 [facility] Comment on above: Order Comment: 1 Y Performed By: #### L 100.0100, L500.2500, L501.5425 #### [facility] [address] [place], [address] Chloride [Moles/Vol] 109 mmol/L High 98-107 [facility] Comment on above: Order Comment: 1 Y Performed By: #### L 100.0100, L500.2500, L501.5425 #### [facility] [address] [place], [address] CO2 [Moles/Vol] 28.0 mmol/L Normal 21.0-32.0 [facility] Comment on above: Order Comment: 1 Y Performed By: #### L 100.0100, L500.2500, L501.5425 #### [facility] [address] [place], [address] Creatinine [Mass/Vol] 0.96 mg/dL Normal 0.55-1.02 [facility] Comment on above: Order Comment: 1 Y Result Comment: The validity of the calculated GFR GFRAA in patients over 70 years has not been determined. Clinical correlation is essential. Performed By: #### L 100.0100, L500.2500, L501.5425 #### [facility] [address] [place], [address] ECRCL 39.72 ml/min Normal [facility] Comment on above: Order Comment: 1 Y Performed By: #### L 100.0100, L500.2500, L501.5425 #### [facility] [address] [place], [address] EST GFR - AA 71 mL/min Normal >60 [facility] Comment on above: Order Comment: 1 Y Result Comment: Afri can Latvian GFR Calc Performed By: #### L 100.0100, L500.2500, L501.5425 #### [facility] [address] [place], [address] GAP 4 Low 5-15 [facility] Comment on above: Order Comment: 1 Y Performed By: #### L 100.0100, L500.2500, L501.5425 #### [facility] [address] [place], [address] GFR/1.73 sq M.predicted among non-blacks MDRD (S/P/Bld) [Vol rate/Area] 59 mL/min/{1.73_m2} Low >60 [facility] Comment on above: Order Comment: 1 Y Result Comment: Non- GFR Calc Performed By: #### L 100.0100, L500.2500, L501.5425 #### [facility] [address] [place], [address] Glucose [Mass/Vol] 103 mg/dL Normal 74-106 [facility] Comment on above: Order Comment: 1 Y Result Comment: Fast ing Glucose result from 100 to 125 mg/dL suggests IMPAIRED HOMEOSTASIS per A.D.A. criteria. Performed By: #### L 100.0100, L500.2500, L501.5425 #### [facility] [address] [place], [address] Potassium [Moles/Vol] 3.8 mmol/L Normal 3.5-5.1 [facility] Comment on above: Order Comment: 1 Y Performed By: #### L 100.0100, L500.2500, L501.5425 #### [facility] [address] [place], [address] Sodium [Moles/Vol] 141 mmol/L Normal 136-145 [facility] Comment on above: Order Comment: 1 Y Performed By: #### L 100.0100, L500.2500, L501.5425 #### [facility] [address] [place], [address] Urea nitrogen [Mass/Vol] 24 mg/dL High 7-18 [facility] Comment on above: Order Comment: 1 Y Performed By: #### L 100.0100, L500.2500, L501.5425 #### [facility] [address] [place], [address] Basophil percentageOrdered B y: Ingris Vela on 02-01-2024 Basophils/100 WBC (Bld) 0.4 % 0-1 [facility] Chloride [Moles/Vol] 109 mmol/L 98-107 [facility] Eosinophils/100 WBC (Bld) 0.4 % 0-5 [facility] Glucose [Mass/Vol] 103 mg/dL 74-106 [facility] Comment on above: Fasting Glucose resu lt from 100 to 125 mg/dL suggests IMPAIRED HOMEOSTASIS per A.D.A. criteria. Hemoglobin (Bld) [Mass/Vol] 13.4 g/dL 12.0-15.0 [facility] Monocytes/100 WBC (Bld) 7.1 % 0-10 [facility] Neutrophils (Bld) [#/Vol] 8.3 10*3/uL 2.0-7.7 [facility] Neutrophils/100 WBC (Bld) 79.0 % 47-70 [facility] Potassium [Moles/Vol] 3.8 mmol/L 3.5-5.1 [facility] Sodium [Moles/Vol] 141 mmol/L 136-145 [facility] WBC (Bld) [#/Vol] 10.6 10*3/uL 4.4-11.0 [facility] CBC W/Diff, Automatedon 01-17 Absolute Lymph 1.35 X10 3/uL Normal 0.83-4.51 [facility] Comment on above: Performed By: #### L 100.0100, L500.2500, L501.5425 #### [facility] [address] [place], [address] Absolute Neut 8.3 X10 3/uL High 2.0-7.7 [facility] Comment on above: Performed By: #### L 100.0100, L500.2500, L501.5425 #### [facility] [address] [place], [address] Basophils/100 WBC (Bld) 0.4 % Normal 0-1 [facility] Comment on above: Performed By: #### L 100.0100, L500.2500, L501.5425 #### [facility] [address] [place], [address] Eosinophils/100 WBC (Bld) 0.4 % Normal 0-5 [facility] Comment on above: Performed By: #### L 100.0100, L500.2500, L501.5425 #### [facility] [address] [place], [address] Erythrocyte distribution width (RBC) [Ratio] 14.0 % Normal 11.6-14.6 [facility] Comment on above: Performed By: #### L 100.0100, L500.2500, L501.5425 #### [facility] [address] [place], [address] Hematocrit (Bld) [Volume fraction] 42.5 % Normal 37-47 [facility] Comment on above: Performed By: #### L 100.0100, L500.2500, L501.5425 #### [facility] [address] [place], [address] Hemoglobin (Bld) [Mass/Vol] 13.4 g/dL Normal 12.0-15.0 [facility] Comment on above: Performed By: #### L 100.0100, L500.2500, L501.5425 #### [facility] [address] [place], [address] IG% 0.300 Normal 0.0-0.9 [facility] Comment on above: Result Comment: IG% - Immature Granulocytes (promyelocytes, myelocytes and metamyelocytes) > 1% indicates that a LEFT SHIFT is Present. Performed By: #### L 100.0100, L500.2500, L501.5425 #### [facility] [address] [place], [address] Lymphocytes/100 WBC (Bld) 12.8 % Low 19-41 [facility] Comment on above: Performed By: #### L 100.0100, L500.2500, L501.5425 #### [facility] [address] [place], [address] MCH (RBC) [Entitic mass] 29.8 pg Normal 27.0-32.0 [facility] Comment on above: Performed By: #### L 100.0100, L500.2500, L501.5425 #### [facility] [address] [place], [address] MCHC (RBC) [Mass/Vol] 31.5 g/dL Low 32-36 [facility] Comment on above: Performed By: #### L 100.0100, L500.2500, L501.5425 #### [facility] [address] [place], [address] MCV (RBC) [Entitic vol] 94.4 fL Normal 81-99 [facility] Comment on above: Performed By: #### L 100.0100, L500.2500, L501.5425 #### [facility] [address] [place], [address] Monocytes/100 WBC (Bld) 7.1 % Normal 0-10 [facility] Comment on above: Performed By: #### L 100.0100, L500.2500, L501.5425 #### [facility] [address] [place], [address] Neutrophils/100 WBC (Bld) 79.0 % High 47-70 [facility] Comment on above: Performed By: #### L 100.0100, L500.2500, L501.5425 #### [facility] [address] [place], [address] Nucleated RBC (Bld) [#/Vol] 0 10*3/uL Normal 0-5 [facility] Comment on above: Performed By: #### L 100.0100, L500.2500, L501.5425 #### [facility] [address] [place], [address] Platelet mean volume (Bld) [Entitic vol] 11.1 fL Normal 6.2-12.0 [facility] Comment on above: Performed By: #### L 100.0100, L500.2500, L501.5425 #### [facility] [address] [place], [address] Platelets (Bld) [#/Vol] 143 10*3/uL Low 150-450 [facility] Comment on above: Performed By: #### L 100.0100, L500.2500, L501.5425 #### [facility] [address] [place], [address] RBC (Bld) [#/Vol] 4.50 10*6/uL Normal 4.2-5.4 [facility] Comment on above: Performed By: #### L 100.0100, L500.2500, L501.5425 #### [facility] [address] [place], [address] RDW SD 48.5 fl High 35.1-43.9 [facility] Comment on above: Performed By: #### L 100.0100, L500.2500, L501.5425 #### [facility] [address] [place], [address] WBC (Bld) [#/Vol] 10.6 10*3/uL Normal 4.4-11.0 [facility] Comment on above: Performed By: #### L 100.0100, L500.2500, L501.5425 #### [facility] [address] [place], [address] Chest PA and Lateralon 01-31 Chest PA and Lateral [facility] Imaging Services [address] [place] [address] Chest PA and Lateral MR#: [id number] Acct: [id number] Name: DINESH FLYNN Rep #: [id number] : 1935 F 88 From: Oz Olivo MD PCP: JOSEY Rincon Status: [facility] Study: Chest PA and Lateral Date of Exam: 02/01/24 Exam# [id number] Ordering Dr: Ingris Vela [id number] STUDY: X-RAY CHEST REASON FOR EXAM: Female, 88 years old. chest pain TECHNIQUE: PA and lateral views of the chest. COMPARISON: None. FINDINGS: The lungs are clear and expanded. There is no demonstrated pleural abnormality. Normal size heart. Normal mediastinum and lay. Normal visualized pulmonary arteries. There is atherosclerotic calcification of the aortic arch with tortuosity. Normal visualized thoracic spine. Normal visualized ribs, clavicles, and shoulders. There is no demonstrated abnormality of the visualized soft tissue structures of the upper abdomen. RAD/Chest PA and Lateral IMPRESSION: No active disease. Electronically Signed: Oz Olivo MD at 19:46 EDT , CC: JOSEY Haney; LAVONNE Chan Scarf Gluer: Signed Normal [facility] Determination of erythrocyte mean corpuscular volume (MCV)Ordered By: Ingris Vela on 02-01-2024 MCV (RBC) [Entitic vol] 94.4 fL 81-99 [facility] Emergency Department Summary on 02-01-2024 Emergency Department Summary [facility] Medical Records Department [address] [place] [address] Emergency Department Summary 02/01/24 MR#: [id number] Acct: [id number] Name: DINESH FLYNN Rep #: [id number] : 1935 88 From: Sivakumar Neal DO PCP: JOSEY Rincon Status:DEP ER Location: ED HPI History of Present Illness Chief Complaint: Chest Pain Narrative Narrative: Patient presenting today due to substernal dull aching chest pain that radiates to the left side of her chest and back that started around 8:30 AM this morning. She reports that the pain is constant. She reports that the pain in her chest has subsided, she still has a slight pain in her mid back. Pain does not worsen with exertion. She denies feeling short of breath, any fevers, chills, recent illness, or cough. She denies any cardiac history. She reports a PMH of hypertension and COPD. PE Risk Factors: Negative for Recent Travel/Surgery, Recent Immobilization or Prior DVT or PE [facility] Medical History Anxiety and depression Chronic pain COPD (chronic obstructive pulmonary disease) GERD (gastroesophageal reflux disease) High cholesterol HTN (hypertension) Osteoporosis Home Medications albuterol sulfate 90 mcg/actuation aerosol inhaler 2 puff inhalation Q8H PRN shortness of breath or wheezing 02/01/24 [History Last Taken Unknown] amlodipine 5 mg tablet 5 mg PO DAILY 02/01/24 [History Last Taken 02/01/24] atenolol 25 mg tablet 25 mg PO DAILY 02/01/24 [History Last Taken 02/01/24] celecoxib 200 mg capsule 200 mg PO DAILY 02/01/24 [History Last Taken 02/01/24] morphine 10 mg capsule,extended release pellets 20 mg PO DAILY 02/01/24 [History Last Taken 02/01/24] omeprazole 40 mg capsule,delayed release 40 mg PO DAILY 02/01/24 [History Last Taken 02/01/24] raloxifene 60 mg tablet 60 mg PO DAILY 02/01/24 [History Last Taken 02/01/24] sertraline 100 mg tablet 150 mg PO DAILY 02/01/24 [History Last Taken Unknown] simvastatin 20 mg tablet 20 mg PO QHS 02/01/24 [History Last Taken 01/31/24] tiotropium bromide 2.5 mcg/actuation mist for inhalation (Spiriva Respimat) 2 puff inhalation DAILY 02/01/24 [History Last Taken 02/01/24] triamterene 37.5 mg-hydrochlorothiazid e 25 mg tablet 1 tab PO DAILY 02/01/24 [History Last Taken 02/01/24] Allergy/AdvReac Type Severity Reaction Status Date / Time No Known Allergies Allergy Verified 02/01/24 15:19 Surgical History H/O knee surgery H/O: hysterectomy Social History Smoking Status: Former smoker ROS ROS ED Constitutional Constitutional ED: Denies chills or fever(s) Cardiovascular Cardiovascular: Reports chest pain; Denies palpitations Respiratory/Chest Respiratory/Chest: Denies cough or dyspnea Gastrointestinal Gastrointestinal: Denies abdominal pain, nausea or vomiting Musculoskeletal Musculoskeletal: Reports back pain Integumentary Denies rash Neurologic Neurologic: Denies paresthesias or weakness EXAM Physical Exam Const Vital Signs: 02/01/24 15:04 02/01/24 15:04 02/01/24 16:04 Temperature 97.2 F L 97.2 F L Temperature Source Temporal Temporal Pulse Rate 82 92 Respiratory Rate 16 18 Respiratory Effort Normal Non-Labored Respiratory Pattern Normal Blood Pressure 148/82 H 150/81 H Blood Pressure Mean 104 104 Pulse Ox 95 93 Oxygen Delivery Method Room Air Room Air 02/01/24 17:00 02/01/24 18:00 02/01/24 19:00 Temperature 97.4 F L 97.2 F L Temperature Source Temporal Temporal Pulse Rate 89 85 88 Respiratory Rate 16 18 21 H Respiratory Effort Respiratory Pattern Blood Pressure 139/76 H 131/77 H 136/81 H Blood Pressure Mean 97 95 99 Pulse Ox 95 96 98 Oxygen Delivery Method Room Air Room Air Room Air 02/01/24 20:00 02/01/24 21:19 02/01/24 21:00 Temperature 98 F Temperature Source Pulse Rate 79 80 98 Respiratory Rate 16 16 19 H Respiratory Effort Respiratory Pattern Blood Pressure 151/78 H 147/83 H 135/82 H Blood Pressure Mean 102 104 99 Pulse Ox 94 98 93 Oxygen Delivery Method Room Air Positive well nourished, well developed and no apparent distress General Appearance ED: well developed HEENT Reports normocephalic and head/scalp atraumatic Mouth ED: Yes moist mucous membranes normal Eyes PERRL and EOMs intact bilaterally Neck full ROM and supple Chest Wall inspection of chest normal Resp normal respiratory effort and clear to auscultation bilaterally Cardio regular rate and regular rhythm GI soft to palpation, non-tender, non-distended and no masses Back/Spine normal ROM and normal to inspection Extremity normal to ins (more content not included)... Normal [facility] Erythrocyte distribution wid th ratioOrdered By: Ingris Vela on 02-01-2024 Erythrocyte distribution width (RBC) [Ratio] 14.0 % 11.6-14.6 [facility] Erythrocyte distribution wid th standard deviationOrdered By: Ingris Vela on 02-01-2024 Erythrocyte distribution width (RBC) [Entitic vol] 48.5 fL 35.1-43.9 [facility] Hematocrit Auto (Bld) [Volum e fraction]Ordered By: Ingris Vela on 02-01-2024 Hematocrit (Bld) [Volume fraction] 42.5 % 37-47 [facility] Immature granulocytes/100 WB C Auto (Bld)Ordered By: Ingris Vela on 02-01-2024 Immature granulocytes/100 WBC (Bld) 0.300 % 0.0-0.9 [facility] Comment on above: IG% - Immature Granu locytes (promyelocytes, myelocytes and metamyelocytes) > 1% indicates that a LEFT SHIFT is Present. L501.4020on 02-01-2024 TROPONIN-I HS 7 pg/mL Normal 3.0-54.0 [facility] Comment on above: Result Comment: Plea se Note: New Test Units and Gender Specific Reference Ranges. For more information see Policy Stat Procedure [place] High Sensitivity Troponin (TNIH) and attachments. Performed By: #### L 100.0100, L500.2500, L501.5425 #### [facility] [address] [place], [address] L501.5425on 02-01-2024 TROPONIN-I HS 9 pg/mL Normal 3.0-54.0 [facility] Comment on above: Order Comment: 1 Y Result Comment: Zoila duron Note: New Test Units and Gender Specific Reference Ranges. For more information see Policy Stat Procedure [place] High Sensitivity Troponin (TNIH) and attachments. Performed By: #### L 100.0100, L500.2500, L501.5425 #### [facility] [address] [place], [address] Laboratory - Chemistry and C hemistry - challengeOrdered By: Ingris Vela on 02-01-2024 CO2 [Moles/Vol] 28.0 mmol/L 21.0-32.0 [facility] Urea nitrogen/Creatinine [Mass ratio] 25.1 mg/mg 10-20 [facility] Laboratory - Hematology and Cell countsOrdered By: Ingris Vela on 02-01-2024 MCH (RBC) [Entitic mass] 29.8 pg 27.0-32.0 [facility] MCHC (RBC) [Mass/Vol] 31.5 g/dL 32-36 [facility] Nucleated RBC/100 WBC (Bld) [Ratio] 0 % 0-5 [facility] Platelet mean volume (Bld) [Entitic vol] 11.1 fL 6.2-12.0 [facility] Platelets (Bld) [#/Vol] 143 10*3/uL 150-450 [facility] No Panel InformationOrdered By: Ingris Vela on 02-01-2024 Troponin I High Sensitivity 7 pg/mL 3.0-54.0 [facility] Comment on above: Please Note: New Marium t Units and Gender Specific Reference Ranges. For more information see Policy Stat Procedure [place] High Sensitivity Troponin (TNIH) and attachments. Estimated Creatinine Clearance Calc 39.72 ml/min [facility] Estimated GFR (MDRD) Amer 71 mL/min >60 [facility] Comment on above: GFR Calc Estimated GFR (MDRD) Non-Af Amer 59 mL/min >60 [facility] Comment on above: Non- GFR Calc RBC Auto (Bld) [#/Vol]Ordere d By: Ingris Vela on 02-01-2024 RBC (Bld) [#/Vol] 4.50 10*6/uL 4.2-5.4 [facility] Serum or plasma calcium laurel urement (mass/volume)Ordered By: Ingris Vela on 02-01-2024 Calcium [Mass/Vol] 9.1 mg/dL 8.5-10.1 [facility] Serum or plasma creatinine m easurement (mass/volume)Ordered By: Ingris Vela on 02-01-2024 Creatinine [Mass/Vol] 0.96 mg/dL 0.55-1.02 [facility] Comment on above: The validity of the calculated GFR & GFRAA in patients over 70 years has not been determined. Clinical correlation is essential. Serum or plasma urea nitroge n measurement (mass/volume)Ordered By: Ingris Vela on 02-01-2024 Urea nitrogen [Mass/Vol] 24 mg/dL 7-18 [facility] Thin prep Papanicolaou smear with manual screeningOrdered By: Ingris Vela on 02-01-2024 Thin prep Papanicolaou smear with manual screening 4 5-15 [facility] Absolute lymphocyte countOrd ered By: Sindhu Haney on 09-25-2023 Lymphocytes Auto (Unsp spec) [#/Vol] 1.55 10*3/uL 0.83-4.51 [facility] Basophil percentageOrdered B y: Sindhu Haney on 09-25-2023 Basophils/100 WBC (Bld) 0.9 % 0-1 [facility] Bilirubin [Mass/Vol] 0.50 mg/dL 0.20-1.00 [facility] Comment on above: For patients on eltr ombopag therapy, use of Dimension [place] TBIL is not recommended. Chloride [Moles/Vol] 106 mmol/L 98-107 [facility] Cholesterol [Mass/Vol] 182 mg/dL <200 [facility] Comment on above: <200 mg/dL Desirable 200-240 mg/dL Borderline >240 mg/dL High Risk Eosinophils/100 WBC (Bld) 1.0 % 0-5 [facility] Glucose [Mass/Vol] 98 mg/dL 74-106 [facility] Neutrophils (Bld) [#/Vol] 5.7 10*3/uL 2.0-7.7 [facility] Neutrophils/100 WBC (Bld) 71.2 % 47-70 [facility] Potassium [Moles/Vol] 3.6 mmol/L 3.5-5.1 [facility] Protein [Mass/Vol] 7.0 g/dL 6.4-8.2 [facility] Sodium [Moles/Vol] 140 mmol/L 136-145 [facility] Triglyceride [Mass/Vol] 152 mg/dL <199 [facility] Comment on above: The drugs N-Acetylcy steine and Metamizole may falsely depress this assay.Serum Triglycerides Reference Interval Normal <150 mg/dL Borderline high 150 - 199 mg/dL High 200 - 499 mg/dL Very High > or = 500 mg/dL WBC (Bld) [#/Vol] 8.0 10*3/uL 4.4-11.0 [facility] Blood erythrocytes count (nu mber/volume)Ordered By: Sindhu Haney on 09-25-2023 RBC (Bld) [#/Vol] 4.60 10*6/uL 4.2-5.4 [facility] Blood hemoglobin measurement (mass/volume)Ordered By: Sindhu Haney on 09-25-2023 Hemoglobin (Bld) [Mass/Vol] 13.7 g/dL 12.0-15.0 [facility] Blood lymphocytes/100 leukoc ytesOrdered By: Sindhu Haney on 09-25-2023 Lymphocytes/100 WBC (Bld) 19.4 % 19-41 [facility] Blood monocytes/100 leukocyt esOrdered By: Sindhu Haney on 09-25-2023 Monocytes/100 WBC (Bld) 7.1 % 0-10 [facility] Blood platelet mean volumeOr dered By: Sindhu Haney on 09-25-2023 Platelet mean volume (Bld) [Entitic vol] 11.6 fL 6.2-12.0 [facility] Determination of erythrocyte mean corpuscular volume (MCV)Ordered By: Sindhu Haney on 09-25-2023 MCV (RBC) [Entitic vol] 94.6 fL 81-99 [facility] Hematocrit Auto (Bld) [Volum e fraction]Ordered By: Sindhujared Haney on 09-25-2023 Hematocrit (Bld) [Volume fraction] 43.5 % 37-47 [facility] Laboratory - Chemistry and C hemistry - challengeOrdered By: Sindhujared Haney on 09-25-2023 ALP [Catalytic activity/Vol] 75 U/L 45-117 [facility] ALT [Catalytic activity/Vol] 20 U/L 13-56 [facility] CO2 [Moles/Vol] 27.0 mmol/L 21.0-32.0 [facility] Globulin (S) [Mass/Vol] 3.4 g/dL 2.2-4.2 [facility] Urea nitrogen/Creatinine [Mass ratio] 19.8 mg/mg 10-20 [facility] Laboratory - Hematology and Cell countsOrdered By: Sindhujared Haney on 09-25-2023 Erythrocyte distribution width (RBC) [Entitic vol] 48.6 fL 35.1-43.9 [facility] Erythrocyte distribution width (RBC) [Ratio] 13.9 % 11.6-14.6 [facility] Immature granulocytes/100 WBC (Bld) 0.400 % 0.0-0.9 [facility] Comment on above: IG% - Immature Granu locytes (promyelocytes, myelocytes and metamyelocytes) > 1% indicates that a LEFT SHIFT is Present. MCH (RBC) [Entitic mass] 29.8 pg 27.0-32.0 [facility] Nucleated RBC/100 WBC (Bld) [Ratio] 0 % 0-5 [facility] MCHC Auto (RBC) [Mass/Vol]Or dered By: Sindhu Haney on 09-25-2023 MCHC (RBC) [Mass/Vol] 31.5 g/dL 32-36 [facility] No Panel InformationOrdered By: Sindhu Haney on 09-25-2023 Estimated GFR (MDRD) Amer 54 mL/min >60 [facility] Comment on above: GFR Calc Estimated GFR (MDRD) Non-Af Amer 45 mL/min >60 [facility] Comment on above: Non- GFR Calc Vitamin D 25-Hydroxy 31.5 ng/mL [facility] Comment on above: Vitamin D 25(OH) Sta tus Range Deficiency <20 ng/mL (50nmol/L) Insufficiency 20 - 30 ng/mL (50 - 75 nmol/L) Sufficiency 30 - 100 ng/mL (75 - 250 nmol/L) Toxicity >100 ng/mL (>250 nmol/L) Platelets bldOrdered By: Sandrine Haney on 09-25-2023 Platelets (Bld) [#/Vol] 165 10*3/uL 150-450 [facility] Serum or plasma albumin laurel urement (mass/volume)Ordered By: Sindhu Haney on 09-25-2023 Albumin [Mass/Vol] 3.6 g/dL 3.2-5.0 [facility] Serum or plasma albumin/glob ulin mass ratioOrdered By: Sindhu Haney on 09-25-2023 Albumin/Globulin [Mass ratio] 1.1 {ratio} 0.9-2.4 [facility] Serum or plasma calcium laurel urement (mass/volume)Ordered By: Sindhu Haney on 09-25-2023 Calcium [Mass/Vol] 9.2 mg/dL 8.5-10.1 [facility] Serum or plasma cholesterol in HDL measurement (mass/volume)Ordered By: Sindhu Haney on 09-25-2023 Cholesterol in HDL [Mass/Vol] 64 mg/dL >40 [facility] Comment on above: The drugs N-Acetylcy steine and Metamizole may falsely depress this assay. Reference Range HDL <40 mg/dL Low HDL Cholesterol HDL >or= 60 mg/dL High HDL Cholesterol Serum or plasma cholesterol in VLDL measurement (mass/volume)Ordered By: Sindhu Haney on 09-25-2023 Cholesterol in VLDL [Mass/Vol] 30 mg/dL 5-40 [facility] Serum or plasma creatinine m easurement (mass/volume)Ordered By: Sindhu Haney on 09-25-2023 Creatinine [Mass/Vol] 1.21 mg/dL 0.55-1.02 [facility] Comment on above: The validity of the calculated GFR & GFRAA in patients over 70 years has not been determined. Clinical correlation is essential. Serum or plasma low density lipoprotein (LDL) cholesterol measurement (mass/volume)Ordered By: Sindhu Haney on 09-25-2023 Cholesterol in LDL [Mass/Vol] 88 mg/dL 0-130 [facility] Serum or plasma urea nitroge n measurement (mass/volume)Ordered By: Sindhu Haney on 09-25-2023 Urea nitrogen [Mass/Vol] 24 mg/dL 7-18 [facility] Thin prep Papanicolaou smear with manual screeningOrdered By: Sindhu Haney on 09-25-2023 Thin prep Papanicolaou smear with manual screening 27 U/L 15-37 [facility] Thin prep Papanicolaou smear with manual screening 7 5-15 [facility] XR KNEE LEFT 2 VIEWS (STANDA RD)on 11-10-2022 XR KNEE LEFT 2 VIEWS (STANDARD) EXAMINATION: XR KNEE LEFT 2 VIEWS (STANDARD) 11/10/2022 11:47 am HISTORY: ORDERING SYSTEM PROVIDED HISTORY: Left knee pain, TECHNOLOGIST PROVIDED HISTORY: Illness/Other Reason for exam: chronic left knee pain, hx of prev. knee replacement, hx of multiple falls Cancer History: u Surgery, RadiationHistory: u Encounter Type: Initial Additional signs and symptoms: limited rom, difficulty standing ORDERING SYSTEM PROVIDED DIAGNOSIS CODES: M25.562 Left knee pain COMPARISON: June 18, 2015. TECHNIQUE: Upright AP and lateral views of the left knee on 3 films. FINDINGS: Total left knee arthroplasty is in stable and anatomic alignment. Hardware appears well seated with no acute fracture identified. No sizable joint effusion. IMPRESSION: Total left knee arthroplasty in anatomic alignment without radiographic signs of hardware complications. [employer] Workstation ID: [id number] Dictated by: TIMBO SMITH on ThuNov 10, 2022 2:32:26 PM EST Transcribed by: DORI PARMAR on ThuNov 10, 2022 2:45:31 PM EST Finalized by: TIMBO SMITH on ThuNov 10, 2022 4:14:39 PM EST Normal [facility] Comment on above: Order Comment: Injur y/Trauma or Illness?:Illness/Other How long have you had these symptoms (acute/chronic)?:Chronic Reason for exam?:chronic left knee pain, hx of prev. knee replacement, hx of multiple falls History of cancer?:u Surgeries, chemotherapy, or radiation?:u Type of Exam?:Initial Additional signs and symptoms?:limited rom, difficulty standing SPINE, LUMBOSACRAL MIN 4 VIE WSon 12-20-2021 SPINE, LUMBOSACRAL MIN 4 VIEWS Patient Name: DINESH FLYNN STUDY: Lumbar Spine, 5 views. INDICATION: M54.5 M47.816. Low back pain COMPARISON: None. ACCESSION NUMBER(S): [id number] ORDERING CLINICIAN: LANETTE LATIF FINDINGS: S shaped scoliosis with moderate dextroscoliosis centered at L1 and mild levoscoliosis centered at the thoracolumbar junction. Advanced retrolisthesis at L3-4. Mild retrolisthesis at L2-3. Severe degenerative changes of the lumbar spine at L2-3 and L3-4 with severe disc height loss. Moderate degenerative changes at L4-5 and L5-S1. Severe facet arthropathy at L4-5 and L5-S1.. No spondylolysis on oblique views. Vertebral body heights are preserved. Posterior elements are intact. IMPRESSION: S shaped scoliosis with moderate dextroscoliosis centered at L1 and mild levoscoliosis centered at the thoracolumbar junction. Advanced retrolisthesis at L3-4. Mild retrolisthesis at L2-3. Severe degenerative changes of the lumbar spine at L2-3 and L3-4 with severe disc height loss. Moderate degenerative changes at L4-5 and L5-S1. Severe facet arthropathy at L4-5 and L5-S1.. No spondylolysis on oblique views. Electronically signed by: JOSEFINA LOCK MD [facility] PT Progress Noteon 9 PT Progress Note Therapy Diagnosis Assessed Abnormal gait (781.2) (R26.9) Pain of left hip joint (719.45) (M25.552) Weakness of both lower extremities (729.89) (R29.517) Insurance Insurance reviewed Visit number: 4 POC: 11/26 [employer]; $20 copay Supervising PT: Ysabel Crockett. Subjective Patient reports: Patient reported 5/10 pain in L hip, L knee and low back before treatment. She reported her L knee wants to give out with ambulation. Treatment Time in clinic started at 02:07 pm Time in clinic ended at 02:40 Total time in clinic is 33 minutes. Total timed code time is 15 minutes. Therapeutic exercise (51242): timed minutes 15, units 2 . NuStep 5 mins LEVEL one TrA Activation 1x10x5 holds hooklying Glute Set 1x10x5 holds Supine (attempted increased Sx) Seated (hooklying) Hip ADD iso 2x10x5 holds playball X Seated (hooklying) Hip ABD iso purple t-band 2x10x5 holds (attempted w/o band increased Sx) Seated (hooklying) march with TrA 1x 10 increased Sx with L HS stretch 3 x 20 Seated X IT band stretch 3 x 20 X Add stretch 3 x 20 X (see manual) X Hip Flexor Stretch 3 x 20 B/L X . Manual Therapy (27234): timed minutes 3, units 1 . STM AND Cross-friction to L Hip FLexor, IT band, Quad, and Add with ROM and manual stretch of IT band x 3'. Modalities: untimed minutes 10, units 1 . MHP in supine to Posterior Hips and lumbar spine, 8 layers, skin intact pre/post tx x 8' while pt being educated on TrA and transfers and HEP X. Provided today: education. Assessment Patient presented with increased popping cracking with all movements of L LE. She presented with decreased strength and increased difficulty with t/f's with lifting L LE and required increased assist and utilized UE's for movement. Attempted several exercises that increased Sx including glut sets. Discussed with PT, she reviewed Sx with patient, Per PT held further TE this date secondary to Sx. Plan Planned interventions include: aquatic therapy, cryotherapy, dry needling, education/instruction , electrical stimulation, gait training, home program, hot pack, kinesiotaping, manual therapy, neuromuscular re-education, self care/home management, therapeutic activities, therapeutic exercises and ultrasound. Goals: Goals set and discussed today. Pt will demo and report compliance with HEP in order to augment POC goals and progression toward independence with symptom management., by week 2 Strength: Pt will demo improved MMT by >/= 1 point on 0-5 point scale in BLE for improved strength and stability, and improved ease with transfers, lifting/carrying, and proper mechanics with ADLs AND IADLs., by week 4 Transfers: Pt will demo sit<>stand with proper body mechanics and with good eccentric control with pain LEFS, Pt will report subjective improvement with score on LEFS improved by >/= 5 points for return to PLOF, improved QOL, and improved ease with ADLs AND IADLs., by week 4 Balance goals added after assessed next session Frequency and duration: 2 time(s) a week, for 4 weeks, for 8 visits. Potential to achieve rehab goals is fair: Progress with strengthening and ROM for increased ease and stability for increased safety and ease with with ADL's. AW . Progress with POC, as tolerated. Signatures Electronically signed by : Ariadna Jimenez PROPERTY UNDERWRITER; Sep 12 2019 2:49PM EST (Author) Electronically signed by : Ysabel Crockett PT; Sep 26 2019 4:42PM EST Normal [facility] PT Progress Noteon 11-20-201 9 PT Progress Note Therapy Diagnosis Assessed Abnormal gait (781.2) (R26.9) Pain of left hip joint (719.45) (M25.552) Weakness of both lower extremities (729.89) (R29.898) Insurance Insurance reviewed Visit number: 4 POC: 2 [employer] Medicare; $20 copay Supervising PT: Ysabel Crockett. Subjective Patient reports: Patient reported 5-6/10 pain in L hip and low back prior to treatment. Home program performing as directed: No . She stated what can I say I could, but I have not done them. Treatment Time in clinic started at 01:14 Time in clinic ended at 02:00 Total time in clinic is 46 minutes. Total timed code time is minutes. Therapeutic exercise (98459): timed minutes 27, units 2 . NuStep 6 mins LEVEL one TrA Activation 1x10x5 holds hooklying Glute Set 1x10x5 holds Supine Seated (hooklying) Hip ADD iso 2x10x5 holds playball (P) Seated (hooklying) Hip ABD iso purple t-band 2x10x5 holds Seated (hooklying) march with TrA 1x 10 HS stretch 3 x 20 Seated IT band stretch 3 x 20 Add stretch 3 x 20 X (see manual) Hip Flexor Stretch 3 x 20 B/L . Manual Therapy (60789): timed minutes 15, units 1 . STM AND Cross-friction to L Hip FLexor, IT band, Quad, and Add with ROM and manual stretch of IT band x 15'. Modalities:. MHP in supine to Posterior Hips and lumbar spine, 8 layers, skin intact pre/post tx x 8' while pt being educated on TrA and transfers and HEP X. Provided today: education. Assessment Reviewed importance of HEP with patient she reported she would start doing them. Trial of d/c of HP prior to treatment this date. Patient reported increased Sx with all movements this date. She required mod-max A with L LE movements. She presented with increased palpable and audible popping/cracking with all L LE She utilized the W/C to and from lobby this date. Plan Planned interventions include: aquatic therapy, cryotherapy, dry needling, education/instruction , electrical stimulation, gait training, home program, hot pack, kinesiotaping, manual therapy, neuromuscular re-education, self care/home management, therapeutic activities, therapeutic exercises and ultrasound. Goals: Goals set and discussed today. Pt will demo and report compliance with HEP in order to augment POC goals and progression toward independence with symptom management., by week 2 Strength: Pt will demo improved MMT by >/= 1 point on 0-5 point scale in BLE for improved strength and stability, and improved ease with transfers, lifting/carrying, and proper mechanics with ADLs AND IADLs., by week 4 Transfers: Pt will demo sit<>stand with proper body mechanics and with good eccentric control with pain LEFS, Pt will report subjective improvement with score on LEFS improved by >/= 5 points for return to PLOF, improved QOL, and improved ease with ADLs AND IADLs., by week 4 Balance goals added after assessed next session Frequency and duration: 2 time(s) a week, for 4 weeks, for 8 visits. Potential to achieve rehab goals is fair: Progress with strengthening and ROM for increased ease and stability for increased safety and ease with with ADL's. AW . Progress with POC, as tolerated. Signatures Electronically signed by : Ariadna Jimenez PTA; Sep 07 2019 2:16PM EST (Author) Electronically signed by : Ysabel Crockett, PT; Sep 07 2019 4:50PM EST [facility] PT Progress Note Therapy Diagnosis Assessed Weakness of both lower extremities (729.89) (R29.898) Pain of left hip joint (719.45) (M25.552) Abnormal gait (781.2) (R26.9) Insurance Insurance reviewed Visit number: 3 POC: 2 [employer] Medicare; $20 copay Supervising PT: Ysabel Crockett. Subjective Patient reports: Patient reported 5/10 in L hip low back prior to treatment. She reported not change in Sx after last session. She reported increased soreness but no increase in pain after treatment. Treatment Time in clinic started at 1:17 pm Time in clinic ended at 1:59 Total time in clinic is 42 minutes. Total timed code time is 41 minutes. Therapeutic exercise (86250): timed minutes 24, units 1 . TrA Activation 1x10x5 holds hooklying (seated this date) Glute Set 1x10x5 holds Hooklying (seated) Seated Hip ADD iso 2x10x5 holds playball (P) Seated Hip ABD iso purple t-band 2x10x5 holds Seated march with TrA 2 x 10 (N) NuStep 4 mins LEVEL one HS, IT band stretch 3 x 20 Seated Add stretch 3 x 20 Seated Hip Flexor Stretch (A when able) . Manual Therapy (63751): timed minutes 9, units 1 . STM AND Cross-friction to L Hip FLexor, IT band, Quad, and Add x 9' in Sitting. Modalities: untimed minutes 8 . MHP in supine to Posterior Hips and lumbar spine, 8 layers, skin intact pre/post tx x 8' while pt being educated on TrA and transfers and HEP. Provided today: education. Assessment Patient ambulated back to treatment area this date instead of using a w/c. Patient demonstrated slow movements with ambulation, t/f's and exercises. She presented with palpable tension in L glut/hip flexors. Plan Planned interventions include: aquatic therapy, cryotherapy, dry needling, education/instruction , electrical stimulation, gait training, home program, hot pack, kinesiotaping, manual therapy, neuromuscular re-education, self care/home management, therapeutic activities, therapeutic exercises and ultrasound. Goals: Goals set and discussed today. Pt will demo and report compliance with HEP in order to augment POC goals and progression toward independence with symptom management., by week 2 Strength: Pt will demo improved MMT by >/= 1 point on 0-5 point scale in BLE for improved strength and stability, and improved ease with transfers, lifting/carrying, and proper mechanics with ADLs AND IADLs., by week 4 Transfers: Pt will demo sit<>stand with proper body mechanics and with good eccentric control with pain LEFS, Pt will report subjective improvement with score on LEFS improved by >/= 5 points for return to PLOF, improved QOL, and improved ease with ADLs AND IADLs., by week 4 Balance goals added after assessed next session Frequency and duration: 2 time(s) a week, for 4 weeks, for 8 visits. Potential to achieve rehab goals is fair: Progress with strengthening and ROM for increased ease and stability for increased safety and ease with with ADL's. AW . Progress with POC, as tolerated. Signatures Electronically signed by : Ariadna Jimenez PROPERTY UNDERWRITER; Sep 07 2019 10:56AM EST (Author) Electronically signed by : Ysabel Crockett PT; Sep 07 2019 4:49PM EST [facility] PT Progress Note Therapy Diagnosis Assessed Abnormal gait (781.2) (R26.9) Pain of left hip joint (719.45) (M25.552) Weakness of both lower extremities (729.89) (R29.898) Insurance Insurance reviewed Visit number: 2 POC: 11/26 [employer] Medicare; $20 copay Supervising PT: Ysabel Crockett. Subjective Patient reports: Patient reported 4-5/10 pain in L hip before treatment she reported more as a ache. Objective Ortho Palpation: significant restriction throughout LLE hip flexor, quad, IT band, HS, Adductors, and Glute. Treatment Time in clinic started at 01:15 pm Time in clinic ended at 2:08 pm Total time in clinic is 53 minutes. Total timed code time is 52 minutes. Therapeutic exercise (33576): timed minutes 32, units 2 . TrA Activation 1x10x5 holds hooklying (seated this date) Glute Set 1x10x5 holds Hooklying (seated ) Seated Hip ADD iso 1x10x5 holds playball Seated Hip ABD iso purple t-band 2x10x5 holds NuStep 3 mins LEVEL one (N) HS, IT band stretch 3 x 20 Seated Add stretch (A) Hip Flexor Stretch (A when able) . Manual Therapy (00966): timed minutes 10, units 1 . STM AND Cross-friction to L Hip FLexor, IT band, Quad, and Add x 10' in Sitting. Modalities: untimed minutes 9 . MHP in supine to Posterior Hips and lumbar spine, 8 layers, skin intact pre/post tx x 8' while pt being educated on TrA and transfers. Provided today: education. Assessment Reviewed with patient importance of proper posture and body mechanics with sitting and t/f's. She demonstrated slow movements with ambulation and t/f's. She was able to progress with strengthening and stretching for decreased Sx and increased ROM. Plan Planned interventions include: aquatic therapy, cryotherapy, dry needling, education/instruction , electrical stimulation, gait training, home program, hot pack, kinesiotaping, manual therapy, neuromuscular re-education, self care/home management, therapeutic activities, therapeutic exercises and ultrasound. Goals: Goals set and discussed today. Pt will demo and report compliance with HEP in order to augment POC goals and progression toward independence with symptom management., by week 2 Strength: Pt will demo improved MMT by >/= 1 point on 0-5 point scale in BLE for improved strength and stability, and improved ease with transfers, lifting/carrying, and proper mechanics with ADLs AND IADLs., by week 4 Transfers: Pt will demo sit<>stand with proper body mechanics and with good eccentric control with pain LEFS, Pt will report subjective improvement with score on LEFS improved by >/= 5 points for return to PLOF, improved QOL, and improved ease with ADLs AND IADLs., by week 4 Balance goals added after assessed next session Frequency and duration: 2 time(s) a week, for 4 weeks, for 8 visits. Potential to achieve rehab goals is fair: Progress with strengthening and ROM for increased ease and stability for increased safety and ease with with ADL's. AW . Progress with POC, as tolerated. Signatures Electronically signed by : Ariadna Jimenez PTA; Sep 02 2019 2:16PM EST (Author) Electronically signed by : Ysabel Crockett PT; Sep 07 2019 4:49PM EST [facility] PT Progress Noteon 9 PT Progress Note Therapy Diagnosis Assessed Abnormal gait (781.2) (R26.9) Pain of left hip joint (719.45) (M25.552) Weakness of both lower extremities (729.89) (R29.898) Insurance Insurance reviewed Visit number: 2 POC: 11/26 [employer]; $20 copay Supervising PT: Ysabel Crockett. Subjective Patient reports: Pt rates her pain about a 6/10 currently, but notes she has to always have her brace on for her back, she couldn't even get around. Pt notes she worked on her HEP, but it was somewhat painful due to positioning. Pt denies trying any heat on her hip/back. Pt arrived to appointment 10 min late and took 5 min to ambulate back to rehab gym due to pain and fatigue. Patient rates current pain 6/10. Home program performing as directed: Yes . not using heat yet. Objective Ortho Palpation: significant restriction throughout LLE hip flexor, quad, IT band, HS, Adductors, and Glute. Treatment Time in clinic started at 1130 am Time in clinic ended at 1205 pm Total time in clinic is 35 minutes. Total timed code time is 25 minutes. Therapeutic exercise (78794): timed minutes 15, units 1 . TrA Activation 1x10x5 holds hooklying Glute Set 1x10x5 holds Hooklying Seated Hip ADD iso 1x10x5 holds playball Seated Hip ABD iso purple t-band 1x10x5 holds Pt edu on bed mobility and transfer body mechanics throughout session NuStep (A) HS, IT band, Add stretch (A) Hip Flexor Stretch (A when able). Manual Therapy (21631): timed minutes 10, units 1 . STM AND Cross-friction to L Hip FLexor, IT band, Quad, and Add x 10' in hooklyling. Modalities: untimed minutes 5 . MHP in supine to Posterior Hips and lumbar spine, 8 layers, skin intact pre/post tx x 5' while pt being educated on TrA and transfers. Provided today: education. Assessment Pt with significant difficulty ambulating back to rehab gym and was fatigued at start of session, so made plan for pt to check in up front and pt would be brought back in W/C to preserve energy. Pt also had significant difficulty with transfer on/off plinth requiring mod-max A from PT, especially for maneuvering LLE. Pt required multiple cues throughout for TrA and Glute activation with transfers and had shortened session due to arrival time and fatigue/pain level. Response to treatment: no change in pain. Patient was able to complete today's treatment with much difficulty. Plan Planned interventions include: aquatic therapy, cryotherapy, dry needling, education/instruction , electrical stimulation, gait training, home program, hot pack, kinesiotaping, manual therapy, neuromuscular re-education, self care/home management, therapeutic activities, therapeutic exercises and ultrasound. Goals: Goals set and discussed today. Pt will demo and report compliance with HEP in order to augment POC goals and progression toward independence with symptom management., by week 2 Strength: Pt will demo improved MMT by >/= 1 point on 0-5 point scale in BLE for improved strength and stability, and improved ease with transfers, lifting/carrying, and proper mechanics with ADLs AND IADLs., by week 4 Transfers: Pt will demo sit<>stand with proper body mechanics and with good eccentric control with pain LEFS, Pt will report subjective improvement with score on LEFS improved by >/= 5 points for return to PLOF, improved QOL, and improved ease with ADLs AND IADLs., by week 4 Balance goals added after assessed next session Frequency and duration: 2 time(s) a week, for 4 weeks, for 8 visits. Potential to achieve rehab goals is fair: Plan to continue to focus on symptom management and decreasing myofascial restriction in LLE and hip musculature and progress exercises for flexibility, ROM, strength, and core stabilization to improve ease with transfers and ambulation. Progress with POC, as tolerated. Normal [facility] PT Initial Evaluationon PT Initial Evaluation Reason For Visit Initial Evaluation . Gait Disorder and Pain in L hip. Referred by: Dr Goldman Subjective Current Episode of Functional Impairment and/or Pain Date of onset: 10/19/18 Mechanism of Injury: insidious onset . Pt presents today with c/o L hip that has been going on for a while now, but pt unable to determine exact date of onset. Pt notes she thinks earlier this year was when her hip really started hurting her more often. Pt notes she has had injections in her L hip, and notes she has been going to pain management for what seems like forever and he has given her multiple injections. Pt notes the injections seem to have helped, but don't last very long. Pt notes most recent injection was about a month ago and notes she has another appointment later this week. Pt notes history of L TKA more than a year ago and had therapy after that. Pain: Patient rates pain 5/10 . Least severe: 4/10. Most Severe: 10. Patient reports aching, dull pain, loss of motion, stiffness, throbbing and weakness. Location: Lateral aspect of L hip (points to bursa). Her pain is constant. Exacerbating Factors: motion, squatting, standing, stairs, walking. Relieving Factors: sitting . sitting in recliner with both legs stretched out; Back brace. Medical Screening: No signs of domestic/child or elder abuse . Fall risk Initial Fall Risk Screening: DINESH has not fallen in the last 6 months. Her fall did not result in injury. DINESH does not have a fear of falling. She needs assistance with . Needs assistance walking in her home. She needs assistance in an unfamiliar setting. The patient is using an assistive device. Fall Risk Assessment: Patient is identified as a fall risk. Altered Mobility: assistive device, physical impairment and unsteady gait. Altered in Mental Status: no. Relevant Medical History/Diagnosis: Multiple Dx: . Altered Elimination: no. Sensory Deficit: no. Low: current pain, age 65 or older and multiple or pertinent current diagnoses. Moderate: unsteady gait/ use of assistive device/apparent weakness or functionally challenged. Care Plan: Moderate Risk: Low risk interventions plus: do not leave patient on exam table unattended, supervised activity, educate patient/family on falls prevention, review safety initiatives with patient/family, family at bedside as allowed, yellow falls risk band, focus rounding attention, locate patient in area of high visibility, wheelchair, bed, or personal alarm, bedside commode, elevated toilet seat and pharmacy consult for medication concerns. Medical screening assessed. Functional Assessment and Medical Management Prior level of function: modified inependence with ADL's and IADLs; Daughter assist with community ambulation/transfers. Functional limitations: standing , walking and stairs . Difficulty and pain with Sit<>stand. Work Status: retired. Patient Awareness: Patient is aware of her diagnosis and prognosis. Current Medical Management:. injections from pain management. Patient stated goal(s) for treatment include: relieving pain , increasing strength , increasing mobility and walking with a normal gait . Living Environment: single story home, 2 steps into the house . uses walker to get in/out of house due to varied landing surfaces Has a harder time getting up onto steps. Has S/C and Walker-will use walker in house if needed; Also has rollator. Precautions: Fall Risk: moderate COPD; Osteoporosis; Htn. Objective Ortho Limited exam due to patient only having 30min for physical therapy exam-will complete rest of evaluation next session with this PT MMT: (RLE/LLE) Hip Flex: 3+/3 Hip Ext: 3/3 Hip ABD: 3/3 Knee Flex: 3+/3+ Knee Ext: 3+/3 Ankle DF: 3+/3+ Ankle PF: 3+/3+ Flexibility: unable to assess today Sit<>Stand: BUE A, multiple attempts, and significant difficulty Gait Mechanics: decreased jose, S/C, step-to pattern, antalgic, decreased stance time LLE . Assessment Mrs Flynn presents with signs and symptoms consistent with diagnosis of gait abnormality and pain in Left hip, most consistent with L trochanteric bursitis. SHe was only able to be partially evaluated today as patient only had 30 minutes of evaluation time remaining after filling out paperwork. Pt will be fully re-assessed next session by this PT. Based on short assessment today, she demonstrates significant weakness, decreased ROM at L hip, poor mechanics with transfers, decreased balance/proprioceptio n, and poor gait mechanics with a moderate fall risk. They would benefit from skilled Physical Therapy with combination of manual therapy techniques to decrease myofascial and joint restrictions, as well as progression of exercises for ROM, flexibility, strength, core stabilization, and glute retraining, and body mechanics education throughout POC to progress towards independence with ADLs/IADLs and return to PLOF. Clinical Presentation: Stable and/or uncomplicated characteristics. Level of Complexity: low Problem List: activity limitations, ADLs/IADLs/self care skills, balance, decreased functional level, fall risk, flexibility, gait/locomotion, motor function/control/tone , participation restrictions, range of motion/joint mobility, strength and transfers. Therapy Diagnosis Assessed Abnormal gait (781.2) (R26.9) Pain of left hip joint (719.45) (M25.552) Weakness of both lower extremities (729.89) (R29.898) Treatment Time in clinic started at 0300 pm Time in clinic ended at 0330 pm Total time in clinic is 30 minutes. Total timed code time is 10 minutes. Treatment Performed Today:. TE: educated patient throughout short evaluation; Pt edu on seated glute set and seated TrA set 1x10 x 10 holds; edu on symptom management and body mechanics. Response to treatment: no change in pain. Patient was able to complete today's treatment with much difficulty. Evaluation Code: 95266 PT Eval: Low Complexity, 15 min(s). Timed: 73250 Therapeutic Exercises, 10 min(s), 1 unit(s). Resources provided today: education Plan of Care Planned interventions include: aquatic therapy, cryotherapy, dry needling, education/instruction , electrical stimulation, gait training, home program, hot pack, kinesiotaping, manual therapy, neuromuscular re-education, self care/home management, therapeutic activities, therapeutic exercises and ultrasound. Goals: Goals set and discussed today. Pt will demo and report compliance with HEP in order to augment POC goals and progression toward independence with symptom management., by week 2 Strength: Pt will demo improved MMT by >/= 1 point on 0-5 point scale in BLE for improved strength and stability, and improved ease with transfers, lifting/carrying, and proper mechanics with ADLs AND IADLs., by week 4 LEFS, Pt will report subjective improvement with score on LEFS improved by >/= 5 points for return to PLOF, improved QOL, and improved ease with ADLs AND IADLs., by week 4 Balance goals added after assessed next session Frequency and duration: 2 time(s) a week, for 4 weeks, for 8 visits. Potential to achieve rehab goals is fair: Plan of care was developed with input and agreement by the patient. Insurance Insurance reviewed Visit number: 1 POC: 10/26 [employer] Medicare; $20 copay Supervising PT: Ysabel Crockett. Contacts for Physician Signature First attempt date: 08/23/19. Referring Provider Signature: I am in agreement with the above plan of care. Referring Provider Signature , Date/Time [facility] XR Spine Thoracic 3 Viewson 05-15-2017 XR Spine Thoracic 3 Views Exam Date/Time:05/15/2017 13:22 EDTReason for Exam:osteoarthritis of spine at multiple levelsReportXR SPINE THORACIC THREE VIEWS, 05/15/2017, 1:11 PMCLINICAL STATEMENT: Lower back pain for a long time. No known injury.COMPARISON: Chest x-ray 12/08/2011.FINDINGS: Two views of the thoracic spine were obtained. Swimmer's view wasalso performed. 12 rib-bearing thoracic vertebrae are present. There isexaggerated kyphosis, slightly more pronounced than prior study. The vertebralbody heights and disc spaces are maintained. Mild endplate spurring is noted atmultiple levels, primarily in the midthoracic spine, similar to prior. No acutefracture or subluxation. The visualized pedicles appear intact and symmetric.The visualized portions of the lungs and heart are unremarkable. There isdextroscoliosis of the upper lumbar spine.IMPRESSION:Mild degenerative changes without acute abnormality of the thoracic spine. FINAL REPORT Dictated: 05/15/2017 6:31 pm Kelton Wood MD LSigned (Electronic Signature): 05/15/2017 6:31 pmSigned by: Kelton Wood MD Technologist: R [facility] Vital Signs Date Time Vital Sign Value Performing Clinician Yahaira guy 02-01-2024 21:19-0400 Body temperature 98 [degF] [facility] 02-01-2024 21:19-0400 Diastolic blood pressure 83 mm[Hg] [facility] 02-01-2024 21:19-0400 Heart rate 80 /min [facility] 02-01-2024 21:19-0400 Respiratory rate 16 /min [facility] 02-01-2024 21:19-0400 SaO2% (BldA) [Mass fraction] 98 % [facility] 02-01-2024 21:19-0400 Systolic blood pressure 147 mm[Hg] [facility] 02-01-2024 15:04-0400 Body height 162.56 cm [facility] 02-01-2024 15:04-0400 Body mass index (BMI) [Ratio] 26.6 kg/m2 [facility] 02-01-2024 15: Body weight 70.3 kg [facility] Encounters Encounter Date Encounter Type Care Provider Facility Start: 09-30-2024 End: 09-30-2024 ambulatory Sindhu Lyndon Facility:[facility] Start: 02-01-2024 End: 02-01-2024 Emergency department patient visit [facility] Work Phone: Start: 09-25-2023 End: 09-25-2023 ambulatory [facility] Work Phone: Start: 09-25-2023 End: 09-25-2023 Patient encounter procedure [facility]Jacobo Kev Baumanyenni [facility] Start: 11-10-2022 End: 11-11-2022 ambulatory [facility] Start: 09-12-2019 Patient encounter procedure Ariadna [facility] Work Phone: Start: 09-07-2019 Patient encounter procedure Ariadna Tony [facility] Work Phone: Start: 09-05-2019 Patient encounter procedure Ariadna Jimenez [facility] Work Phone: Start: 09-02-2019 Patient encounter procedure Ariadna Jimenez [facility] Work Phone: Start: 08-29-2019 Patient encounter procedure Ysabel Corckett [facility] Work Phone: Start: 08-22-2019 Patient encounter procedure Ysabel Crockett [facility] Work Phone: Start: 05-01-2018 End: 05-01-2018 Emergency department patient visit Kari Goldman Facility:[facility] Start: 05-01-2018 Patient encounter Facil [id number] Start: 05-15-2017 End: 05-16-2017 Patient encounter Kari Goldman Facility:[facility] Procedures Date Procedure Procedure Detail Performing Clinician Start: 02-01-2024 Plain chest X-ray Plan of Treatment Date Care Activity Detail Author Start: 02-01-2024 End: 02-01-2024 [facility] Patient Education ED Chest Pain, Uncertain Cause [facility] Work Phone: Patient referral [facility] Work Phone: [facility] Work Phone: NEGATED: Highlighted row has been ruled out! Planned Goals not documented [facility] Work Phone: Payers Date Payer Category Payer Self-pay [id number] 2021 Medicare [id number] 2017 Private Health Insurance 1935 Unknown [id number] Medicare MEDICARE PART A B . [id number] Private Health Insurance MEB [id number] Unknown [id number] Unknown [id number] Social History Date Type Detail Facility Assertion [facility] Start: 1935 Sex Assigned At Female [facility] Start: 02-01-2024 [facility] Functional Status Date Assessment Result Facility NEGATED: Highlighted row Functional performance Functional status health issues are not documented Disease [facility] Work Phone: Mental Status Date Assessment Result Facility 02-01-2024 Cognitive function Voice/Name [facility] Work Phone: NEGATED: Highlighted row Cognitive function [Interpretation] Cognitive status health issues are not documented Disease [facility] Work Phone: Evaluation note Note Date & Type Note Facility Evaluation note No assessment information availa ble [facility] Work Phone: Hospital Discharge instructions Note Date & Type Note Facility Hospital Discharge instructions Additional Instructions Please follow-up with your PCP and return for any worsening of your symptoms. [facility] Work Phone: Summary Purpose Family History No Family History Records FoundNo Family History Records FoundNo Family History Records FoundNo Family History Records FoundNo Family History Records FoundNo Family History Records Found Advance Directives No Advanced Directives Records Found Advance Directive Response Recorded Date/ Time Living Will Yes February 01, 2024 3:04pm Power of [employer] Operator Yes January 31 3:04pm Name of Medical Power of [employer] Operator [place] Flynn February 01, 2024 3:04pm Hospital Course Note Discharge Summary PHYSICAL T HERAPY Referral/Discharge Information: Date of Discharge: 12/05/19 Date of Last Visit: 09/12/19 Date of Evaluation: 08/22/19 Number of Attended Visits: 6 Referred by: Dr Goldman Referred for: Gait and Balance Disorder Problems/Issues Addressed: (address weakness in BLE's and core, address decreased proprioception and balance, and worked on improved right reactions and standing/gait stability) Status at Discharge: (unable to fully assess) Reason for Discharge: Attendance inconsistent. Signatures Electronically signed by : Ysabel Crockett PT; Dec 05 2019 4:14PM EST (Author) Chief Complaint and Reason for Visit Chief Complaint cp Additional Source Comments INFORMATION SOURCE (unrecogn ized section and content) DATE CREATED AUTHOR 05/01/2018 [facility] DATE CREATED AUTHOR AUTHOR'S ORGANIZ ATION 06/11/2018 [facility] DATE CREATED AUTHOR AUTHOR'S ORGANIZ ATION 12/06/2019 [facility] DATE CREATED AUTHOR AUTHOR'S ORGANIZ ATION 12/25/2021 [facility] DATE CREATED AUTHOR AUTHOR'S ORGANIZ ATION 11/12/2022 [facility] DATE CREATED AUTHOR AUTHOR'S ORGANIZ ATION 11/10/2024 [facility] Teams (unrecognized sec tion and content) Team Status: Active Member Role Status Dates Dr. Kari Goldman MD Family Provider Active JOSEY Rincon Primary Care Provider Active Team Status: Inactive Member Role Status Dates JOSEY Rincon Primary Care Provider, Attending Bo cotton Active Team Status: Inactive Member Role Status Dates JOSEY Rincon Primary Care Provider Active Dr. Sivakumar Nael , DO Emergency Provider Active Goals (unrecognized section and content) Goals may be documented in a n alternate sectionGoals may be documented in an alternate section FOR RECORDS PERTAINING TO PATIENTS WHO ARE OR HAVE BEEN ENROLLED IN A CHEMICAL DEPENDENCY/SUBSTANCEABUSE PROGRAM, SOME INFORMATION MAY BE OMITTED. This clinical summary was aggregated from multiple sources. Caution should be exercised in using it in the provision of clinical care. This summary normalizes information from multiple sources, and as a consequence, information in this document may materially change the coding, format and clinical context of patient data. In addition, data may be omitted in some cases. CLINICAL DECISIONS SHOULD BE BASED ON THE PRIMARY CLINICAL RECORDS. [facility] [facility]. provides no warranty or guarantee of the accuracy or completeness of information in this document.
[2025-10-06 12:20] LABS: Hematocrit 42.1 % (37-47); Hemoglobin 13.3 g/dL (12.0-15.0); Immature Granulocytes Count 0.020 X10^3/uL (0.0-0.0); Mean Corp Hgb Conc 31.6 g/dL (32-36); Mean Corpuscular Volume 97.9 fL (81-99); Mean Platelet Vol. 11.3 fl (6.2-12.0); NRBC Flagged by Analyzer 0 % (0-5); Platelet Count 214 K/mm3 (150-450); RBC Distribution Width CV 13.3 % (11.6-14.6); RBC Distribution Width SD 47.8 fl (35.1-43.9); Red Blood Count 4.30 M/mm3 (4.2-5.4); White Blood Count 7.3 K/mm3 (4.4-11.0)
[2025-10-06 13:11] LABS: AST(SGOT) 18 U/L (<=31); Alanine Aminotransfer ALT/SGPT 7 U/L (<=34); Albumin, Serum 4.0 g/dL (3.4-4.8); Alkaline Phosphatase 66 U/L (35-104); Anion Gap 12 (5-15); BUN 38 mg/dL (4-19); BUN/Creat Ratio 26.0 RATIO (10-20); Calcium,Total 9.9 mg/dL (7.6-11.0); Carbon Dioxide 25.7 mmol/L (21.0-32.0); Chloride 106 mmol/L (98-108); Cholesterol 186 mg/dL (<=200); Globulin 2.8 g/dL (2.2-4.2); Glucose 99 mg/dL (70-99); Low Density Lipoprotein Calc. 101 mg/dL; Potassium 4.3 mmol/L (3.3-5.1); Triglycerides 133 mg/dL; Very Low Density Lipoprotein 27 mg/dL (5-40); Vitamin D,25 Hydroxy 111.0 ng/mL (30-100); cholesterol:hdl ratio screen 3.00
== END | disposition home or self-care (01) ==
LOC: BFHLAB 10:20
PROVIDERS: PCP Nurse Practitioner Family; Visit Provider Nurse Practitioner Family
DX: E55.9 Vitamin D deficiency, unspecified (principal); E78.5 Hyperlipidemia, unspecified; I10 Essential (primary) hypertension
CPT/HCPCS: 36415; 80053; 80061; 82306; 85025